=== PATIENT | female | born 1960 | race Hispanic/Latino ===

== ENCOUNTER 2017-09-19 03:23 | Inpatient (IN) | payer MEDICAID ==
[2017-09-19 04:27] LABS: ALB/GLOB RATIO 1.2 (1.1-1.8); ALBUMIN 3.9 g/dL (3.0-4.8)
[2017-09-19 04:53] LABS: URINE BILIRUBIN NEGATIVE (NEGATIVE); URINE BLOOD NEGATIVE (NEGATIVE); URINE GLUCOSE (UA) NEGATIVE (NEGATIVE); URINE LEUKOCYTE ESTERASE MODERATE Leu/uL (NEGATIVE); URINE NITRATE NEGATIVE (NEGATIVE); URINE PROTEIN NEGATIVE mg/dL (<30 mg/dL); URINE UROBILINOGEN 0.2 E.U./dL (<1 E.U./dL)
[2017-09-19 04:54] LABS: BASO # 0.04 K/mm3 (0.0-2.0); BASO % 0.6 % (0.0-3.0); EOS # 0.3 (0.0-0.7); EOS % 4.3 % (1.5-5.0); GRAN # 3.69 (1.4-6.5); GRAN % 54.3 % (50.0-68.0); HEMOGLOBIN 10.3 g/dL (12.0-16.0); LYMPH # 2.3 (1.2-3.4); LYMPH % 33.7 % (22.0-35.0); MEAN CELL VOLUME 84.6 fl (80.0-105.0); MEAN CORPUSCULAR HEMOGLOBIN 25.6 pg (25.0-35.0); MEAN CORPUSCULAR HGB CONC 30.3 g/dl (31.0-37.0); MEAN PLATELET VOLUME 11.9 fl (7.0-11.0); MONO # 0.5 (0.1-0.6); MONO % 7.1 % (1.0-6.0); RBC 4.02 10^6/uL (3.5-6.1); RED CELL DISTRIBUTION WIDTH 15.1 % (11.5-14.5); WHITE BLOOD COUNT 6.8 10^3/ul (4.5-11.0)
[2017-09-19 04:58] LABS: URINE APPEARANCE SL CLOUDY (CLEAR); URINE COLOR YELLOW (YELLOW)
[2017-09-19 05:09] LABS: URINE RBC 0 - 2 /hpf (0-2)
[2017-09-19 05:10] LABS: URINE BACTERIA RARE (NEG)
--- NOTE | 2017-09-19 05:32 | ED PDOC ---
Arrival/HPI - General Chief Complaint: Psychiatric Evaluation Time Seen by Provider: 09/19/17 03:33 Historian: Patient - History of Present Illness Narrative History of Present Illness (Text): 09/19/17 03:57 A 57 year old female, whose past medical history includes anxiety and depression , presents to the emergency department after being sent by Dr Joseph for evaluation. Patient reports experiencing anxiety and is unable to sleep. Patient denies any physical complaints, SI/HI, auditory/visual hallucinations, or any other complaints. No PMD Past Medical History - Provider Review Nursing Documentation Reviewed: Yes - Psychiatric Hx Substance Use: No Family/Social History - Physician Review Nursing Documentation Reviewed: Yes Family/Social History: No Known Family HX Smoking Status: n Hx Alcohol Use: No Hx Substance Use: No Allergies/Home Meds Allergies/Adverse Reactions: Allergies No Known Allergies Allergy (Verified 09/19/17 03:32) Home Medications: Home Meds Medication Instructions Recorded Confirmed Atorvastatin [Lipitor] 40 mg PO DAILY 09/19/17 09/19/17 Furosemide [Lasix] 40 mg PO DAILY 09/19/17 09/19/17 Magnesium Oxide [Magnesium] 400 mg PO DAILY 09/19/17 09/19/17 Melatonin [Melatin] 3 mg PO HS 09/19/17 09/19/17 Pantoprazole [Protonix] 40 mg PO DAILY 09/19/17 09/19/17 Potassium Chloride [K-Dur 20] 10 meq PO DAILY 09/19/17 09/19/17 Pregabalin [Lyrica] 50 mg PO TID 09/19/17 09/19/17 Riociguat [Adempas] 1.5 mg PO DAILY 09/19/17 09/19/17 Sennosides [Senna] 8.6 mg PO DAILY 09/19/17 09/19/17 Ziprasidone HCl [Geodon] 80 mg PO BID 09/19/17 09/19/17 clonazePAM [clonAZEPAM] 1 mg PO QID 09/19/17 09/19/17 metOLazone [Zaroxolyn] 2.5 mg PO DAILY 09/19/17 09/19/17 Review of Systems - Physician Review All systems were reviewed & negative as marked: Yes - Review of Systems Constitutional: Other (no physical complaints noted by patient). absent: Fevers Psychiatric: absent: Anxiety, Suicidal Ideation, Other (no HI, no auditory/ visual hallucinations) Physical Exam Vital Signs Reviewed: Yes Vital Signs Temp Pulse Resp BP Pulse Ox 09/19/17 04:19 97.6 F 61 17 141/68 95 Temperature: Afebrile Blood Pressure: Normal Pulse: Regular Respiratory Rate: Normal Appearance: Positive for: Well-Appearing Pain Distress: None Mental Status: Positive for: Alert and Oriented X 3 - Systems Exam Head: Present: Atraumatic, Normocephalic Pupils: Present: PERRL Extroacular Muscles: Present: EOMI Conjunctiva: Present: Normal Mouth: Present: Moist Mucous Membranes Neck: Present: Normal Range of Motion Respiratory/Chest: Present: Clear to Auscultation, Good Air Exchange. No: Respiratory Distress, Accessory Muscle Use Cardiovascular: Present: Regular Rate and Rhythm, Normal S1, S2. No: Murmurs Abdomen: Present: Normal Bowel Sounds. No: Tenderness, Distention, Peritoneal Signs Back: Present: Normal Inspection Upper Extremity: Present: Normal Inspection. No: Cyanosis, Edema Lower Extremity: Present: Normal Inspection. No: Edema Neurological: Present: GCS=15, CN II-XII Intact, Speech Normal Skin: Present: Warm, Dry, Normal Color. No: Rashes Psychiatric: Present: Alert, Oriented x 3, Normal Insight, Normal Concentration , Anxious. No: Suicidal Ideation, Homicidal Ideation, Hallucinations Medical Decision Making ED Course and Treatment: 09/19/17 04:00 Impression: 57 year old female with anxiety and insomnia. Physical exam is normal. Plan: -- EKG -- Chest X-ray -- Labs -- Urinalysis -- Reassess and disposition Progress Notes: EKG: Ordered, reviewed, and independently interpreted the EKG. Rate : 58 BPM Rhythm : Sinus rhythm Interpretation : Right axis deviation, incomplete Right Bundle Branch Block Comparison : No previous EKG for comparison. - Lab Interpretations Lab Results: 09/19/17 04:00 09/19/17 04:00 Lab Results 09/19/17 04:20: Urine Opiates Screen Negative, Urine Methadone Screen Negative, Ur Barbiturates Screen Negative, Ur Phencyclidine Scrn Negative, Ur Amphetamines Screen Negative, U Benzodiazepines Scrn Negative, U Oth Cocaine Metabols No result, U Cannabinoids Screen Negative 09/19/17 04:20: Urine Color Yellow, Urine Appearance Sl cloudy, Urine pH 6.0, Ur Specific [place] <= 1.005, Urine Protein Negative, Urine Glucose (UA) Negative, Urine Ketones Negative, Urine Blood Negative, Urine Nitrate Negative, Urine Bilirubin Negative, Urine Urobilinogen 0.2, Ur Leukocyte Esterase Moderate H, Urine RBC 0 - 2, Urine WBC 5 - 10, Ur Epithelial Cells 1 - 3, Urine Bacteria Rare 09/19/17 04:00: Alcohol, Quantitative < 10 09/19/17 04:00: Salicylates < 1 L, Acetaminophen < 10.0 L 09/19/17 04:00: Sodium 140, Potassium 4.4, Chloride 102, Carbon Dioxide 28, Anion Gap 14, BUN 40 H, Creatinine 1.5 H, Est GFR ( Amer) 44, Est GFR ( Non-Af Amer) 36, Random Glucose 139 H, Calcium 11.0 H, Total Bilirubin 0.7, AST 23, ALT 32, Alkaline Phosphatase 68, Total Protein 7.1, Albumin 3.9, Globulin 3.2, Albumin/Globulin Ratio 1.2 09/19/17 04:00: WBC 6.8, RBC 4.02, Hgb 10.3 L, Hct 34.0 L, MCV 84.6, MCH 25.6, MCHC 30.3 L, RDW 15.1 H, Plt Count 156, MPV 11.9 H, Gran % 54.3, Lymph % (Auto) 33.7, [place] % (Auto) 7.1 H, Eos % (Auto) 4.3, Baso % (Auto) 0.6, Gran # 3.69, Lymph # 2.3, [place] # 0.5, Eos # 0.3, Baso # 0.04 I have reviewed the lab results: Yes - RAD Interpretation Radiology Orders: 09/19/17 03:33 CHEST ONE VIEW [RAD] Stat - Transfer of Care Patient signed out to Dr:: Ry - Stephibjatin Statement The provider has reviewed the documentation as recorded by the Leslie Delaney Provider Scribe Attestation: All medical record entries made by the Stephibjatin were at my direction and personally dictated by me. I have reviewed the chart and agree that the record accurately reflects my personal performance of the history, physical exam, medical decision making, and the department course for this patient. I have also personally directed, reviewed, and agree with the discharge instructions and disposition. Disposition/Present on Arrival - Present on Arrival Any Indicators Present on Arrival: No History of DVT/PE: No History of Uncontrolled Diabetes: No Urinary Catheter: No History of Decub. Ulcer: No History Surgical Site Infection Following: None - Disposition Have Diagnosis and Disposition been Completed?: Yes Diagnosis: MDD (major depressive disorder) Disposition Time: 07:00 Condition: UNKNOWN Forms: [employer] (Egyptian)
[2017-09-19 05:50] LABS: BARBITURATES, UR NEGATIVE (NEGATIVE); BENZODIAZEPINES, UR NEGATIVE (NEGATIVE); OPIATES, UR NEGATIVE (NEGATIVE); PHENCYCLIDINE, UR NEGATIVE (NEGATIVE)
--- NOTE | 2017-09-19 07:21 | ED PDOC ---
Physical Exam Vital Signs Reviewed: Yes Vital Signs Temp Pulse Resp BP Pulse Ox 09/19/17 07:53 98.1 F 83 16 116/59 L 94 L 09/19/17 04:19 97.6 F 61 17 141/68 95 Temperature: Afebrile Blood Pressure: Normal Pulse: Regular Respiratory Rate: Normal Appearance: Positive for: Well-Appearing, Non-Toxic, Comfortable Pain Distress: None Mental Status: Positive for: Alert and Oriented X 3 Medical Decision Making ED Course and Treatment: 09/19/17 07:20: Patient endorsed to me by Dr. Flores. Sent in by Dr. Joseph for evaluation of anxiety and insomnia. Pending admission. PROCEDURE: CHEST RADIOGRAPH, 1 VIEW Dictator : Eugene Aguayo MD Report Date : 09/19/2017 08:18:26 IMPRESSION: No active disease. 09/19/17 10:14 psychiatric consultation appreciated. Pt is medically cleared for psychiattric evaluation and as per debra Cheng pt is to be admitte for stabilization of depressive disorder and overwhleming anxiety stabilization. . - Lab Interpretations Lab Results: 09/19/17 04:00 09/19/17 04:00 Lab Results 09/19/17 09:59: POC Glucose (mg/dL) 181 H 09/19/17 04:20: Urine Opiates Screen Negative, Urine Methadone Screen Negative, Ur Barbiturates Screen Negative, Ur Phencyclidine Scrn Negative, Ur Amphetamines Screen Negative, U Benzodiazepines Scrn Negative, U Oth Cocaine Metabols No result, U Cannabinoids Screen Negative 09/19/17 04:20: Urine Color Yellow, Urine Appearance Sl cloudy, Urine pH 6.0, Ur Specific [place] <= 1.005, Urine Protein Negative, Urine Glucose (UA) Negative, Urine Ketones Negative, Urine Blood Negative, Urine Nitrate Negative, Urine Bilirubin Negative, Urine Urobilinogen 0.2, Ur Leukocyte Esterase Moderate H, Urine RBC 0 - 2, Urine WBC 5 - 10, Ur Epithelial Cells 1 - 3, Urine Bacteria Rare 09/19/17 04:00: Alcohol, Quantitative < 10 09/19/17 04:00: Salicylates < 1 L, Acetaminophen < 10.0 L 09/19/17 04:00: Sodium 140, Potassium 4.4, Chloride 102, Carbon Dioxide 28, Anion Gap 14, BUN 40 H, Creatinine 1.5 H, Est GFR ( Amer) 44, Est GFR ( Non-Af Amer) 36, Random Glucose 139 H, Calcium 11.0 H, Total Bilirubin 0.7, AST 23, ALT 32, Alkaline Phosphatase 68, Total Protein 7.1, Albumin 3.9, Globulin 3.2, Albumin/Globulin Ratio 1.2 09/19/17 04:00: WBC 6.8, RBC 4.02, Hgb 10.3 L, Hct 34.0 L, MCV 84.6, MCH 25.6, MCHC 30.3 L, RDW 15.1 H, Plt Count 156, MPV 11.9 H, Gran % 54.3, Lymph % (Auto) 33.7, [place] % (Auto) 7.1 H, Eos % (Auto) 4.3, Baso % (Auto) 0.6, Gran # 3.69, Lymph # 2.3, [place] # 0.5, Eos # 0.3, Baso # 0.04 - RAD Interpretation Radiology Orders: 09/19/17 03:33 CHEST ONE VIEW [RAD] Stat - Scribe Statement The provider has reviewed the documentation as recorded by the Scribe Janet Stone Provider Scribe Attestation: All medical record entries made by the Scribe were at my direction and personally dictated by me. I have reviewed the chart and agree that the record accurately reflects my personal performance of the history, physical exam, medical decision making, and the department course for this patient. I have also personally directed, reviewed, and agree with the discharge instructions and disposition. Disposition/Present on Arrival - Present on Arrival Any Indicators Present on Arrival: No History of DVT/PE: No History of Uncontrolled Diabetes: No Urinary Catheter: No History of Decub. Ulcer: No History Surgical Site Infection Following: None - Disposition Have Diagnosis and Disposition been Completed?: Yes Diagnosis: MDD (major depressive disorder), Anxiety disorder Disposition: HOSPITALIZED Disposition Time: 10:16 Patient Plan: Admission Patient Problems: Current Active Problems Problem Status Onset MDD (major depressive disorder) Acute Condition: UNKNOWN Forms: [employer] (Uzbek)
--- NOTE | 2017-09-19 08:20 | RAD ---
PROCEDURE: CHEST RADIOGRAPH, 1 VIEW HISTORY: psych eval COMPARISON: None available. FINDINGS: LUNGS: Clear. PLEURA: No pneumothorax or pleural fluid seen. CARDIOVASCULAR: Normal. OSSEOUS STRUCTURES: No significant abnormalities. VISUALIZED UPPER ABDOMEN: Normal. OTHER FINDINGS: None. IMPRESSION: No active disease.
--- NOTE | 2017-09-19 10:46 | CARD ---
APPROVED REPORT EKG Measurement Heart [id number] <Conclusion> Sinus bradycardia Right axis deviation Incomplete right bundle branch block Possible Right ventricular hypertrophy Abnormal QRS-T angle, consider primary T wave abnormality Abnormal ECG
[2017-09-19 10:51] LABS: SALICYLATE < 1 mg/dL (2.0-20.0)
[2017-09-19] MEDS ORDERED: Insulin Regular 1 UNITS/0.01 ML ML ONE (13:14)
[2017-09-19] MEDS ORDERED: Home Med 1 UNIT PO SCH ×2 (16:30→16:41)
[2017-09-19] MEDS ORDERED: Non Formulary Medication (Insulin Aspart/Insulin Aspar [Novolog Mix 70/30 (70/30 Units/Ml) SC SCH (16:30)
[2017-09-19] MEDS: metOLazone 2.5 MG TAB PO SCH (16:58)
[2017-09-19] MEDS: Pantoprazole 40 mg EC Tab PO SCH (16:59)
[2017-09-19] MEDS: Insulin Lispro (humaLOG) LOW Coverage SC SCH ×2 (17:01→22:45)
[2017-09-19] MEDS ORDERED: DiphenhydrAMINE 50 mg/ml Inj IM STA (17:13)
--- NOTE | 2017-09-19 17:16 | CP.PCM.PCO ---
Addendum Addendum: 09/19/17 17:14 pt is screaming, yelling, not able to calm down, argumentative about her meds pt got PO meds, but was not able to calm down, interrupting unit milieu this fiction and nonfiction writer prose called , discussed the plan to give Haldol 2mg and benadryl 25mg IM stat, agreed staff was advised to let pt stay in quiet room for 30min until meds will start working discussed with RN/staff and attending will monitor closely
[2017-09-19] MEDS: ADEMPAS 1.5 MG PO SCH (17:45)
--- NOTE | 2017-09-19 19:55 | PCM.BM ---
<Rima Cotton - Last Filed: 09/19/17 19:52> Treatment Plan Problems - Problems identified on initial assessmt ALTERED SLEEP PATTERN Date Initiated: 09/19/17 Time Initiated: 20:00 Assessment reference: NA Status: Active Priority: 1 AGITATED BEHAVIOR Date Initiated: 09/19/17 Time Initiated: 20:00 Assessment reference: NA Status: Active Priority: 2 INEFFECTIVE IMPULSE CONTROL Date Initiated: 09/19/17 Time Initiated: 20:00 Assessment reference: NA Status: Active Priority: 3 Treatment assets and liabiliti Patient Assests: cooperative, ADL independent, good support system, cognitively intact Patient Liabilities: relationship conflicts, dietary restrictions, medical problems - Milieu Protocol Maintain good personal hygiene: daily Encourage regular showers, daily Remind patient to perform daily oral care, daily Assist patient to perform ADL's Maintain personal safety: every shift Educate patient to report safety concerns to staff, every shift Monitor environment for contraband/sharps Medication safety: Monitor for expected outcome, potential side effects: every shift, Assess barriers to learning: every shift, Assess readiness for medication education: every shift Discharge/Continuing Care - Education Needs Education Needs: Patient Medication, Patient Diagnosis/Disease Process, Patient Coping Skills, Patient Community resources, Patient Activities of Daily Living, Patient Nutrition, Patient Uses of Medical Equipment, Patient Health Practices/ Safety, Patient Personal Hygiene/Grooming, Patient Aftercare Safety Plan - Discharge Discharge Criteria: Tolerates medication w/o severe side effects, Free of paranoid thoughts, Free of agitation, Normal sleep pattern, Ability to care for self, Reduction of target symptoms Discharge to:: Home <Rajni Martinez - Last Filed: 09/22/17 16:14> Family Contact Family involvement: Family/SO is involved Family contact name: Nohemi(sister) Family contacted how many times per week?: 2
[2017-09-19] MEDS: MELATONIN 3 MG PO SCH (22:33)
[2017-09-20 08:29] LABS: ALB/GLOB RATIO 1.3 (1.1-1.8); ALBUMIN 4.1 g/dL (3.0-4.8); CALCIUM 10.9 mg/dL (8.4-10.5)
[2017-09-20] MEDS: Pantoprazole 40 mg EC Tab PO SCH (08:30)
[2017-09-20] MEDS: Magnesium Oxide 400 mg Tab UD PO SCH (08:31)
[2017-09-20] MEDS: metOLazone 2.5 MG TAB PO SCH (08:31)
[2017-09-20] MEDS: Potassium Chloride 10 mEq ER Tab PO SCH (08:31)
[2017-09-20] MEDS: Insulin Lispro (humaLOG) LOW Coverage SC SCH ×4 (08:35→21:46)
[2017-09-20] MEDS: ADEMPAS 1.5 MG PO SCH ×3 (08:35→17:56)
[2017-09-20 08:42] LABS: FREE T4 1.24 ng/dL (0.78-2.19)
--- NOTE | 2017-09-20 09:36 | HP ---
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 She resides with her who she is in conflict with, complaining he does not pay enough attention to her, was not supportive of her, threats to put her in a half-way, etc. and her 12-year-old son who is according to the patient undisciplined, engages in bizarre behaviors like hitting the wall, threatening at times (but who appears to be a paradigm of a good student at school such that his teachers do not observe the problematic domestic behavior described). The patient has an older daughter who had a baby recently. The patient had been stressed out over having to prepare dinners for the daughter and her new during week days (apparently it is the norm in the [facility] community that the patient is a part of to offer such assistance to the newly wed couple for the first year of their marriage). The patient has for many years been unable to have children, but as noted has two children, having undergone much gynecologic/fertility treatment. She has also had to deal with a number of medical issues including diabetes, pulmonary hypertension. The patient has had several hospitalizations in the [place] area over the past year because of her fragile medical state, which includes also some cardiac irregularity. These hospitals have included [facility] and [facility]; both in [place]. 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 Over the years, attempts have been made to get the patient involved in ongoing psychotherapy; with the patient having made a number of changes in the therapist that she had been seeing; oftentimes, these are somewhat knowledgeable, supportive, identified individuals or friends. The patient has several nieces, the offspring of her siblings who have also been helpful to the patient. These appear also to be the major extent of her social milieu. The patient prior to coming under my care had been diagnosed by another psychiatrist in [place] as bipolar and had been on lithium, but this apparently led to adverse renal and cardiac problems. The patient is considered to have an impaired intelligence, but her siblings rejected this notion when I have brought up this possibility. As far as I can determine, the patient has never undergone a full neuropsychological battery of testing. The patient's also appears to be somewhat avoidant of interacting with mental health workers, including me, making only rare appearances in my office (oftentimes driving his to our appointments, but going shopping and refusing to come upstairs to be spoken to in my office). He has worked primarily as a school crossing guard. The patient presently appears to be alert, but agitated, with pressured speech, sometimes tangentiality and anger. She does not appear to be psychotic. The patient is presently being maintained on Lasix 40 mg daily, Lyrica 50 mg t.i.d., magnesium oxide 400 mg daily, Protonix 40 mg daily, Senokot 8.6 mg daily, Zaroxolyn 2.5 mg daily. The patient has been started on Tegretol 200 mg b.i.d. in an attempt to control her agitated state; with the possibility that she in fact does have atypical bipolar disorder. The patient in the past has been maintained on Mellaril and Ativan for a number of years and did well on this. When feeling better, she is more focused, calm, interactive, but whose insight and judgment are considered to be challenged. 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 PLAN: The patient will be monitored and an attempt will be made to stabilize her both psychiatrically and metabolically. Toni Joseph MD/ PhD
[2017-09-20] MEDS: carBAMazepine Chew Tab 100 MG Chew Tab PO SCH (17:55)
[2017-09-20] MEDS: MELATONIN 3 MG PO SCH (21:41)
--- NOTE | 2017-09-21 02:35 | PN ---
DATE: SUBJECTIVE: The patient was interviewed in the presence of her sister, Romie. The patient remains with pressured speech, some agitation, some difficulty in listening in the course of conversation, and at times appears unable to adapt to some of the realities of her life. I have suggested that the patient's family engage in family therapy upon her discharge, but the patient feels that her will not go for such treatment and is avoiding to generally of seeing mental health workers. The patient also might have reported aberrant behavior of her 12-year-old son. Nursing feels that while her speech is pressured and loud that she is calming down. She had been started on Tegretol earlier, but became very sedated. She is now being given a lower dose while being maintained on Geodon 80 mg b.i.d., Klonopin 1 mg four times a day, pregabalin 50 mg t.i.d., and with a dose of Tegretol now cut to half to 100 mg b.i.d. Toni Joseph MD/ PhD
--- NOTE | 2017-09-21 03:32 | CON ---
MEDICAL CONSULT HISTORY OF PRESENT ILLNESS: I have been asked to see this 57-year-old female, who presents to [facility] as a patient of Dr. Joseph, her psychiatrist. She lives in [place]. She is an Presybeterian/Hasidic Denominational woman with multiple medical problems. History is taken from the patient primarily. She states that she has a history of diabetes, pulmonary hypertension, depression. ALLERGIES: SHE DENIES ANY ALLERGY HISTORY. SOCIAL HISTORY: She denies any use of alcohol, drugs or smoking. She is . She has 2 children. She expresses the fact that there is tended to be some conflict between her and her . The son does express some disruptive behavior in the home, although reportedly in school he is a good student. She had a daughter who , she has been involved with helping to care for the and her new . She does get some assistance from family members. There is a history based upon Dr. Joseph of a possible bipolar disorder. There is a history of anoxic event causing some possible neurologic and ophthalmological problems. MEDICATIONS: Her medications are reportedly Geodon 80 mg b.i.d., Zaroxolyn 2.5 mg daily, clonazepam 1 mg four times a day, senna 8.6 mg daily, Adempas 1.5 mg daily, Lyrica 50 mg t.i.d, K-Dur 10 mEq daily, Protonix 40 mg daily, melatonin 3 mg at bedtime, magnesium oxide 400 mg daily. She states that she is on insulin, NovoLog 70/30, 18 units b.i.d., Lasix 40 mg daily, and Lipitor 40 mg daily. PHYSICAL EXAMINATION GENERAL: She is alert and oriented x3. VITAL SIGNS: Her temperature 97.8, her pulse is 52, her blood pressure is 104/44, and respiratory rate is 20. NECK: Supple. LUNGS: Clear. HEART: S1 and S2 rhythm. ABDOMEN: Obese, soft. Positive bowel sounds. EXTREMITIES: Show no evidence of edema. Her EKG shows sinus bradycardia, right axis deviation, incomplete right bundle branch block, possible right ventricular hypertrophy with abnormal QRS-T angle, consider primary T-wave abnormality. She had a chest x-ray which lungs reported as clear, no active disease. LABORATORY DATA: Shows WBC of 6.8, RBC 4.02, hemoglobin 10.3, hematocrit 34, platelet count 136. Chemistries show normal electrolytes, the BUN is 40, the creatinine is 1.2, random blood sugar is 147, calcium is 10.9. LFTs are normal. Her cholesterol is 122, her triglycerides are 90, her TSH is 0.61. Urinalysis showed moderate leukocyte esterase. Toxicology screen was negative. IMPRESSION: A 57-year-old female with history of pulmonary hypertension, insulin-dependent diabetes mellitus, possible anoxic episode during infancy or at , organic personality disorder, one must rule out bipolar disorder. PLAN: We will check the patient's hemoglobin A1C. Request an Endocrine consult given the fact that the patient states if she sometimes adjust her insulin according to its level, it is not clear as to how or how much. Resume her medications as she has prescribed, and we will follow the patient medically with Dr. Joseph. Suyapa Benjamin MD
[2017-09-21] MEDS ORDERED: Insulin Human NPH/Reg 70/30 Vial(3 ml) SC SCH ×3 (07:30→16:42)
[2017-09-21] MEDS ORDERED: Home Med 1 UNIT PO SCH (08:00)
[2017-09-21] MEDS: Insulin Lispro (humaLOG) LOW Coverage SC SCH ×4 (08:35→21:29)
[2017-09-21] MEDS: ADEMPAS 1.5 MG PO SCH ×3 (09:12→18:09)
[2017-09-21] MEDS: Potassium Chloride 10 mEq ER Tab PO SCH (09:13)
[2017-09-21] MEDS: Pantoprazole 40 mg EC Tab PO SCH (09:15)
[2017-09-21] MEDS: Magnesium Oxide 400 mg Tab UD PO SCH (09:15)
[2017-09-21] MEDS: metOLazone 2.5 MG TAB PO SCH (09:15)
[2017-09-21] MEDS: carBAMazepine Chew Tab 100 MG Chew Tab PO SCH ×2 (09:16→18:22)
--- NOTE | 2017-09-21 11:03 | CON ---
DATE: ENDOCRINOLOGY CONSULT LOCATION: Room 513. HISTORY OF PRESENT ILLNESS: This is a 57-year-old female with known history of type 2 insulin-requiring diabetes, presenting here with behavioral disturbances and has been admitted to the Psychiatric Unit and is now being referred for diabetic evaluation and management. PAST MEDICAL HISTORY: History of type 2 insulin-requiring diabetes, currently on a premixed insulin regimen using NovoLog 70/30, given as 18 units subcu b.i.d. before meals as ordered; history of hypertension and dyslipidemia; history of generalized anxiety and depression with underlying chronic schizoaffective disorder. FAMILY HISTORY: Positive for diabetes and hypertension. SOCIAL HISTORY: The patient has supportive family. No known substance use. REVIEW OF SYSTEMS: As mentioned above. Admits to generalized body weakness with episodic bouts of dizziness and lightheadedness and suboptimal energy level. No chest pains or palpitations or PND. Her oral intake has been variable with nausea, dyspepsia, and habitual constipation. PHYSICAL EXAMINATION: GENERAL: This is an obese female, in no apparent distress. VITAL SIGNS: Blood pressure of 140/80, pulse of 90 beats per minute and regular, temperature 98, respirations 20, height 5 feet, and weight of 214 pounds. HEENT: Head is normocephalic. Eyes are anicteric with pink conjunctivae. Funduscopy not possible at this time. Ears, nose and throat, otherwise normal. NECK: Supple. Thyroid gland is of normal size. No carotid bruits or any cervical adenopathy. CARDIOPULMONARY: Some adynamic precordium. S1 and S2, rapid and regular. LUNGS: Clear to auscultation. ABDOMEN: Obese and soft with positive bowel sounds. EXTREMITIES: No peripheral edema. Pulses are +2 bilaterally. LABORATORIES: Her chemistries showed a BUN of 40. Sodium 139, potassium 4.1, chloride 102, CO2 27, glucose 182, and creatinine 1.2. Her calcium level has ranged from 10.9 to 11.0 mg/dL. Her glucose levels have ranged from 157 to 177 mg/dL. Her A1c is 6.5%. Her thyroid level showed a TSH of 0.61 with a free T4 of 1.24. ASSESSMENT: This is a 57-year-old female with uncontrolled and decompensated type 2 insulin-requiring diabetes, also admitted here to the Psychiatric Unit for major depression and psychotic breakthrough with behavioral disturbances, and is now being referred for diabetic evaluation and management. PLAN OF MANAGEMENT: As discussed with the staff, we will continue the low-dose correction scale using Humalog insulin as ordered and if her oral intake improves, then we will start her on a basal and bolus insulin regimen as indicated and/or a premixed insulin regimen as indicated. Because of her emotional lability, it would be better to simplify the insulin regimen and we will restart her by tomorrow on the premixed insulin regimen to optimize metabolic control. We will obtain serial chemistries and supplement accordingly as needed. We will follow. Swetha Lowe MD
--- NOTE | 2017-09-21 20:27 | PN ---
DATE: ENDO FOLLOWUP NOTE LOCATION: In room 512 psychiatry. SUBJECTIVE: This is a 57-year-old female with recent generalized anxiety and major depression and is now being followed closely by the Psychiatric unit and is also being followed for metabolic management. Her glycemic levels are fluctuating but much improved at this time and the latest glucose levels have ranged from 211-228 and 253 mg/dL. Her latest chemistries showed a BUN of 40, sodium 139, potassium 4.1, chloride 102, CO2 of 27, glucose 182 and creatinine 1.2. Her calcium level is 10.9, A1c is 6.5%. So at this time, we will modify her basal and bolus insulin regimen and increase the Humulin 70/30 to 16 units subcu a.c. breakfast daily and also increase the dinner time dosing with Humulin 70/30 given as 12 units a.c. dinner to start today as ordered. We will titrate incrementally as indicated to optimize metabolic control. We will obtain serial chemistries and supplement accordingly as needed. We will also continue the low-dose correction scale using Humalog insulin as ordered. We will follow and advise accordingly. Swetha Lowe MD
[2017-09-21] MEDS: MELATONIN 3 MG PO SCH (21:27)
--- NOTE | 2017-09-21 23:31 | PN ---
DATE: SUBJECTIVE: This is a 57-year-old female on the Psychiatry Unit under Dr. Toni Joseph service. PHYSICAL EXAMINATION: VITAL SIGNS: She has a temperature of 98, pulse is 56, blood pressure is 107/52. GENERAL: She is alert and oriented x3. NECK: Supple. LUNGS: Clear. HEART: S1 and S2 rhythm. ABDOMEN: Soft, scaphoid, with positive bowel sounds. LABORATORY DATA: Random blood sugar is 157. Her hemoglobin A1c is 6.5. MEDICATIONS: She is currently on Geodon 80 mg b.i.d., Humalog sliding scale, Klonopin 1 mg p.o. q.i.d., potassium chloride 10 mEq daily, Lasix 40 mg daily, Lyrica 50 mg t.i.d., magnesium oxide 400 mg daily, Protonix 40 mg daily, Senokot 8.6 mg daily, Tegretol 100 mg p.o. b.i.d., Thorazine 25 mg p.o. a.m. and at bedtime, and Zaroxolyn 2.5 mg daily. ASSESSMENT AND PLAN: She currently is being followed by Psychiatry for depression history and agitation. She has been followed by Endocrinology for type 2 insulin requiring diabetes. She has a past medical history of pulmonary hypertension, atherosclerotic heart disease. We will continue to monitor the patient medically along with Psychiatry, Dr. Joseph and Endocrinology, Dr. Guerrero. She is taking her home medication for pulmonary hypertension Adempas 1.5 mg daily. Suyapa Benjamin MD
--- NOTE | 2017-09-21 23:41 | PCM.PYCHPN ---
Psychiatric Progress Note - Psychiatric Progress Note Patient seen today, length of contact: 25 Patient Chief Complaint: depression Medication Change: No Medical Record Reviewed: Yes Mental Status Examination - Cognitive Function Orientation: Person, Place, Situation, Time Memory: Intact Attention: WNL Concentration: WNL Association: WNL Fund of Knowledge: WNL - Mood Mood: Depressed, Anxious - Affect Affect: Blunted - Speech Speech: Loud, Pressured - Formal Thought Process Formal Thought Process: Other - Suicidal Ideation Suicidal Ideation: No - Homicidal Ideation Homicidal Ideation: No Goal/Treatment Plan - Goal/Treatment Plan Need for Continued Stay: Remain at risks for inpatient hospitalization, Discharge may exacerbated symptoms
[2017-09-22] MEDS ORDERED: Alum-Mag Hydrox-Simethicone Susp (30 mL) PO PRN (05:34)
[2017-09-22] MEDS ORDERED: Insulin Human NPH/Reg 70/30 Vial(3 ml) SC SCH (07:30)
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
[2017-09-22] MEDS: ADEMPAS 1.5 MG PO SCH ×3 (09:02→18:58)
[2017-09-22] MEDS: Insulin Lispro (humaLOG) LOW Coverage SC SCH ×4 (09:03→22:16)
[2017-09-22] MEDS: carBAMazepine Chew Tab 100 MG Chew Tab PO SCH ×2 (09:03→19:00)
[2017-09-22] MEDS: Pantoprazole 40 mg EC Tab PO SCH (09:04)
[2017-09-22] MEDS: Magnesium Oxide 400 mg Tab UD PO SCH (09:04)
[2017-09-22] MEDS: metOLazone 2.5 MG TAB PO SCH (09:04)
[2017-09-22] MEDS: Potassium Chloride 10 mEq ER Tab PO SCH (09:05)
--- NOTE | 2017-09-22 16:24 | PN ---
DATE: SUBJECTIVE: This is a 57-year-old female on the Psychiatric Unit under Dr. Toni Joseph's service sitting in the chair, somewhat little bit sleepy. PHYSICAL EXAMINATION: GENERAL: She is alert and oriented x3. VITAL SIGNS: Her temperature is 98, her pulse is 56, her blood pressure is 124/55, and respiratory rate is 20. LUNGS: Clear. HEART: S1 and S2 rhythm. ABDOMEN: Soft, scaphoid, positive bowel sounds. EXTREMITIES: No evidence of edema. LABORATORY DATA: Her RPR is negative. Her blood sugar this morning was 216. ASSESSMENT AND PLAN: The patient was reported by the staff as requiring oxygen the night before, where they reported that her pulse oximetry was 88%. After the discussion with the patient's she now makes us aware of the fact that she has a history of sleep apnea, uses equipment at home at night, also uses oxygen at night. My consult has been requested with Pulmonary. We will place the patient on oxygen. Request the patient's family bring in her equipment from home. In the interim, she continues on her psychiatric medication for depression, pulmonary hypertension, medication from home. We will follow up the patient's labs. The staff has been instructed as to what the plan care is at this time. Suyapa Benjamin MD
--- NOTE | 2017-09-22 20:08 | CON ---
DATE: 09/22/2017 PULMONARY CONSULTATION REASON FOR CONSULTATION: Pulmonary hypertension. REFERRING PHYSICIAN: Suyapa Benjamin MD History is obtained via extensive discussion with Dr. Benjamin. I have also reviewed the chart at length. The patient is not an adequate historian at this point in time. The patient is a 57-year-old female, who appears much older than her stated age, with past medical history significant for obstructive sleep apnea, pulmonary hypertension, diabetes mellitus, organic personality disorder, who presented to the [facility] - originally on 09/19/2017 - with increasing anxiety and inability to sleep. The patient was then seen by Dr. Joseph and admitted for additional evaluation. The patient is not short of breath at rest. She does state to occasional shortness of breath with exertion. There is no history of cough or sputum production. There is no history of chest pain, coughing up of blood, or chest pain - made worse with deep respirations. There is no history of temperatures, chills or infectious exposure. There is no history of night sweats, weight loss or appetite change prior to the above events. No history of leg or calf pains. No history of syncope or diaphoresis. No history of recent travel or trauma. REVIEW OF SYSTEMS: No history of nausea, vomiting or diarrhea. No acute urinary symptoms. No new musculoskeletal complaints. Rest of the review of systems is negative. ALLERGIES: NO KNOWN ALLERGIES. SOCIAL HISTORY: Negative for tobacco. Negative for alcohol. FAMILY HISTORY: No inheritable diseases. HOME MEDICATIONS: Include Zaroxolyn, clonazepam, Geodon, Adempas, Lyrica, Protonix, magnesium, NovoLog, Lasix, Lipitor. PHYSICAL EXAMINATION: GENERAL: The patient appears comfortable this morning. She is not short of breath at rest. VITAL SIGNS: Last temperature recorded is 98.0, pulse is 80, respirations 18, and blood pressure 124/55. Oxygen saturation measured on room air - 09/19/2017 - 99%. HEENT: Normocephalic, atraumatic. No JVD. CARDIOVASCULAR: Positive S1, S2. No S3 gallop. LUNGS: Clear bilaterally. EXTREMITIES: No clubbing, cyanosis or edema. Calves are nontender to palpation. GI: Abdomen is soft, nontender and nondistended. Bowel sounds are positive. SKIN: No acute rash. NEUROLOGIC: Exam limited at the present time. PERTINENT LABORATORY DATA: Chest x-ray was done on 09/19/2017 and reviewed. There is no active disease present. CBC: White count 6.8, hemoglobin 10.3, hematocrit 34.0, platelets of 156,000. Complete metabolic profile: BUN 40, glucose 182, calcium 10.9. Rest of the metabolic profiles within normal limits. IMPRESSION: 1. Obstructive sleep apnea. 2. Pulmonary hypertension. 3. Oxygen desaturation at night. 4. Diabetes mellitus. 5. Organic personality disorder. PLAN: Again, I did discuss the case with Dr. Benjamin at length. I have also reviewed the chart at length. The patient was admitted to [facility] - on 09/19/2017 - with worsening anxiety and inability to sleep. I did question the patient in reference to her diagnosis of pulmonary hypertension. Apparently, she was diagnosed over a year ago at [facility]. We will try to get those records if possible. The patient also has a history of obstructive sleep apnea and is reportedly compliant with her CPAP mask. I did discuss the case with the nursing staff as well. Apparently, two nights ago, the patient had an oxygen saturation of 89% when sleeping. We will continue the patient on nasal cannula oxygen - especially when sleeping. I have also discussed the case with the respiratory therapist. The respiratory therapist will obtain a room air oxygen saturation today while awake. Lastly, we will continue with her Adempas - for her pulmonary hypertension. I did review the chest x-ray as above. The chest x-ray shows no active disease. In addition, the lungs are clear on physical exam. Again, I have discussed the case with the nursing staff, as well as the respiratory therapist at length. The family will be called, and hopefully will bring the patient's CPAP mask in with them. Additional pulmonary intervention will be based on the clinical status of the patient. Again, I did discuss the case with Dr. Benjamin at length. Thank you very much for this pulmonary consultation. Sahil Henry MD [facility]
[2017-09-22] MEDS: MELATONIN 3 MG PO SCH (21:58)
--- NOTE | 2017-09-23 00:09 | PN ---
DATE: 09/22/2017 ENDOCRINOLOGY FOLLOWUP NOTE LOCATION: Room 513, psychiatry. SUBJECTIVE: This is a 57-year-old female with recent uncontrolled type 2 insulin-requiring diabetes presenting here with generalized anxiety and major depression and currently followed closely at the psychiatric unit and is also being followed closely for metabolic management. Her glycemic levels are fluctuating as noted and today's glucose levels have ranged from 249 to 312 and 315 mg/dL. LABORATORY DATA: Her latest chemistry showed a BUN of 40, sodium 139, potassium 4.1, chloride 102, CO2 27, glucose 182 and creatinine 1.2. PLAN: So at this time, we will continue the low-dose correction scale using Humalog insulin as given. We will also increase her premixed insulin regimen to optimize metabolic control with a higher dose of Humulin 70/30 given as 24 units a.c. breakfast and 18 units a.c. dinner to start tomorrow morning as ordered. We will obtain serial chemistries and supplement accordingly needed. We will follow. Swetha Lowe MD
[2017-09-23] MEDS: Insulin Lispro (humaLOG) LOW Coverage SC SCH ×5 (07:30→22:12)
[2017-09-23] MEDS: Insulin Human NPH/Reg 70/30 Vial(3 ml) SC SCH ×3 (07:55→16:28)
[2017-09-23 08:07] LABS: ALB/GLOB RATIO 1.2 (1.1-1.8); ALBUMIN 4.5 g/dL (3.0-4.8); CALCIUM 11.2 mg/dL (8.4-10.5)
[2017-09-23] MEDS: metOLazone 2.5 MG TAB PO SCH (08:50)
[2017-09-23] MEDS: Pantoprazole 40 mg EC Tab PO SCH (08:50)
--- NOTE | 2017-09-23 08:54 | PCM.PYCHPN ---
Psychiatric Progress Note - Psychiatric Progress Note Patient seen today, length of contact: 25 MIN Patient Chief Complaint: "better" Problems Identified/Issues Discussed: I reviewed assessment and recent notes. Patient appears fairly cooperative with questioning but notably disorganized, overinclusive and scattered with her responses. Has a tendency to ramble. Oriented to year and location but not to month. She denies depression or hallucinations. Feeling more alert since her medications were adjusted by Dr. Joseph yesterday. Denies any pain or discomfort. Staff notes indicate that she has been visible, loud and talkative on the unit. Still disorganized and elevated. She remains unpredictable. Diagnostic Results: Bipolar Disorder NOS Anxiety Disorder Medication Change: No Medical Record Reviewed: Yes Mental Status Examination - Cognitive Function Orientation: Person, Place, Situation, Time Memory: Intact Attention: WNL Concentration: WNL Association: WNL Fund of Knowledge: WNL - Mood Mood: Depressed, Anxious - Affect Affect: Blunted - Speech Speech: Loud, Pressured - Formal Thought Process Formal Thought Process: Other - Suicidal Ideation Suicidal Ideation: No - Homicidal Ideation Homicidal Ideation: No Goal/Treatment Plan - Goal/Treatment Plan Need for Continued Stay: Remain at risks for inpatient hospitalization, Discharge may exacerbated symptoms Progress Toward Problem(s) and Goals/Treatment Plan: * c/w current tx and plan * Vitals reviewed and noted below: Selected Entries 09/21/17 09/21/17 09/21/17 07:34 09:14 16:30 Temperature 98.0 F Pulse Rate 56 L 56 L Respiratory 20 Rate Blood Pressure 118/72 118/72 107/52 L 09/22/17 09:05 Temperature Pulse Rate Respiratory Rate Blood Pressure 124/55 L * Awaiting 09/23/17 lab results
[2017-09-23] MEDS: ADEMPAS 1.5 MG PO SCH ×3 (08:55→17:11)
[2017-09-23 08:56] LABS: BASO # 0.05 K/mm3 (0.0-2.0); BASO % 0.7 % (0.0-3.0); EOS # 0.3 (0.0-0.7); EOS % 4.4 % (1.5-5.0); GRAN # 3.65 (1.4-6.5); GRAN % 50.6 % (50.0-68.0); HEMOGLOBIN 12.7 g/dL (12.0-16.0); LYMPH # 2.7 (1.2-3.4); LYMPH % 36.8 % (22.0-35.0); MEAN CELL VOLUME 83.4 fl (80.0-105.0); MEAN CORPUSCULAR HEMOGLOBIN 26.1 pg (25.0-35.0); MEAN CORPUSCULAR HGB CONC 31.3 g/dl (31.0-37.0); MEAN PLATELET VOLUME 11.9 fl (7.0-11.0); MONO # 0.5 (0.1-0.6); MONO % 7.5 % (1.0-6.0); RBC 4.87 10^6/uL (3.5-6.1); RED CELL DISTRIBUTION WIDTH 14.8 % (11.5-14.5); WHITE BLOOD COUNT 7.2 10^3/ul (4.5-11.0)
[2017-09-23] MEDS: carBAMazepine Chew Tab 100 MG Chew Tab PO SCH ×2 (09:00→16:31)
[2017-09-23] MEDS: Potassium Chloride 10 mEq ER Tab PO SCH (09:07)
[2017-09-23] MEDS: Magnesium Oxide 400 mg Tab UD PO SCH (09:07)
--- NOTE | 2017-09-23 13:13 | PN ---
DATE: PULMONARY PROGRESS NOTE SUBJECTIVE: We have been trying with difficulty to get the patient's CPAP machine from home. This would be easy because the settings are already on that machine. The family is unreachable. I would like to know the name of the [employer]ME Company, so that I can obtain settings and use a CPAP machine from the hospital. This is presently an impossibility. As such, we will order a CPAP from the hospital and start with an empiric settings of 12 cm of water. Hopefully, this will be sufficient in alleviating her sleep apnea. Once family is able to be contacted and [employer] Company can be contacted, we will know the exact settings of her sleep apnea for her CPAP. Because the patient has been worked up in [facility] and followed there, we are not privy to any additional information. Also, the patient has pulmonary hypertension. Her problem is stable at the present time. CLINICAL IMPRESSION: 1. Obstructive sleep apnea. 2. Pulmonary hypertension. 3. Hypoxemia. 4. Diabetes mellitus. 5. Personality disorder. PLAN: As discussed above. Dex Butts MD [facility]
[2017-09-23] MEDS: MELATONIN 3 MG PO SCH (22:13)
--- NOTE | 2017-09-24 00:09 | PN ---
DATE: ENDOCRINOLOGY FOLLOWUP NOTE LOCATION: Room 513. SUMMARY: This is a 57-year-old female with recent uncontrolled type 2 insulin-requiring diabetes now being followed closely for metabolic management. Her glycemic levels are fluctuating, but much improved at this time and her latest glucose levels have ranged from 136 mg/dL to 195 mg/dL. Her latest chemistry showed BUN of 54, sodium of 139, potassium of 3.7, chloride of 96, CO2 of 29, glucose of 150, and creatinine 1.4. So at this time, to allow for dose equilibration, we will continue the same premixed insulin regimen given as Humulin 70/30 24 units a.c. breakfast and 18 units a.c. dinner as ordered. We will continue the low-dose correction scale using Humalog insulin. We will titrate incrementally as indicated to optimize metabolic control. We will follow. Swetha Lowe MD
[2017-09-24] MEDS: Insulin Lispro (humaLOG) LOW Coverage SC SCH ×4 (08:34→22:00)
--- NOTE | 2017-09-24 08:39 | PCM.PYCHPN ---
Psychiatric Progress Note - Psychiatric Progress Note Patient seen today, length of contact: 25 MIN Patient Chief Complaint: "tired, I didn't sleep well" Problems Identified/Issues Discussed: I reviewed recent notes and met with patient at bedside. Patient appears unkempt and tired. She didn't sleep well last night and took off her CPAP because it was uncomfortable. Patient is fairly cooperative with questioning but thought process is scattered, repetitive and difficult to follow at times. She has a tendency to ramble. Oriented to month, year and location today. She denies depression or hallucinations. Denies any pain, discomfort or side effects from her medications. Staff notes indicate that she has been visible, loud and talkative on the unit. Still disorganized and labile but manageable. Diagnostic Results: Bipolar Disorder NOS Anxiety Disorder Medication Change: No Medical Record Reviewed: Yes Mental Status Examination - Cognitive Function Orientation: Person, Place, Situation, Time Memory: Intact Attention: WNL Concentration: Poor Association: Loose Fund of Knowledge: WNL - Mood Mood: Depressed ("tired, I didn't sleep well"), Anxious - Affect Affect: Blunted - Speech Speech: Loud, Pressured - Formal Thought Process Formal Thought Process: Other (scattered, repetitive and difficult to follow at times) - Suicidal Ideation Suicidal Ideation: No - Homicidal Ideation Homicidal Ideation: No Goal/Treatment Plan - Goal/Treatment Plan Need for Continued Stay: Remain at risks for inpatient hospitalization, Discharge may exacerbated symptoms Progress Toward Problem(s) and Goals/Treatment Plan: * c/w current tx and plan * Appreciate f/u by Dr. Butts on 09/23/17~ordered CPAP from hospital * Appreciate f/u by Dr. Lowe on 09/23/17~Glycemic levels fluctuating but improving * Vitals reviewed and noted below: 09/23/17 09/23/17 09/23/17 07:12 09:07 10:42 Temperature 98.4 F Pulse Rate 56 L 80 Respiratory 20 Rate Blood Pressure 118/93 H 118/93 H 09/23/17 09/24/17 16:00 00:08 Temperature Pulse Rate 77 64 Respiratory Rate Blood Pressure 147/94 H * New weekend labs noted below: Laboratory Results - last 24 hr 09/23/17 09/23/17 09/23/17 06:45 16:23 21:24 WBC 7.2 RBC 4.87 Hgb 12.7 D Hct 40.6 MCV 83.4 MCH 26.1 MCHC 31.3 RDW 14.8 H Plt Count 185 MPV 11.9 H Gran % 50.6 Lymph % (Auto) 36.8 H Dukes % (Auto) 7.5 H Eos % (Auto) 4.4 Baso % (Auto) 0.7 Gran # 3.65 Lymph # 2.7 Dukes # 0.5 Eos # 0.3 Baso # 0.05 POC Glucose (mg/dL) 195 H 256 H 09/24/17 07:59 WBC RBC Hgb Hct MCV MCH MCHC RDW Plt Count MPV Gran % Lymph % (Auto) Dukes % (Auto) Eos % (Auto) Baso % (Auto) Gran # Lymph # Dukes # Eos # Baso # POC Glucose (mg/dL) 166 H
[2017-09-24] MEDS: Pantoprazole 40 mg EC Tab PO SCH (08:40)
[2017-09-24] MEDS: carBAMazepine Chew Tab 100 MG Chew Tab PO SCH ×2 (08:40→16:56)
[2017-09-24] MEDS: Potassium Chloride 10 mEq ER Tab PO SCH (08:40)
[2017-09-24 08:41] LABS: CALCIUM 11.5 mg/dL (8.4-10.5)
[2017-09-24] MEDS: metOLazone 2.5 MG TAB PO SCH (08:42)
[2017-09-24] MEDS: Magnesium Oxide 400 mg Tab UD PO SCH (08:42)
[2017-09-24] MEDS: ADEMPAS 1.5 MG PO SCH ×3 (08:43→17:25)
[2017-09-24] MEDS: Insulin Human NPH/Reg 70/30 Vial(3 ml) SC SCH ×2 (08:43→16:58)
--- NOTE | 2017-09-24 09:57 | PN ---
DATE: 09/23/2017 SUBJECTIVE: This is a 57-year-old female on the Psychiatry Unit under the care of Dr. Toni Joseph. PHYSICAL EXAMINATION: GENERAL: She is alert and oriented x3. VITAL SIGNS: Temperature of 98.4, blood pressure of 118/93, pulse is 56, respiratory rate is 20, and oxygen saturation is reported at 91% on room air. LUNGS: Clear. HEART: S1 and S2 rhythm. ABDOMEN: Soft, positive bowel sounds. EXTREMITIES: No evidence of edema. LABORATORY DATA: Shows WBC of 7.2, RBC of 4.87, hemoglobin of 12.7, hematocrit of 40.6, and platelet count of 185. Chemistry shows normal electrolytes. BUN of 54, creatinine of 1.4, calcium is 11.2, and random blood sugar is 150. MEDICATIONS: The patient is currently on Geodon 60 mg b.i.d., Adempas 1.5 mg daily, sliding insulin scale for coverage, Klonopin 1 mg four times a day, Klor-Con 10 mEq daily, Lasix 40 mg daily, Lyrica 50 mg 3 times a day, Maalox p.r.n., magnesium oxide 400 mg daily, milk of magnesia p.r.n., Protonix 40 mg daily, Senokot tab daily, Tegretol 50 mg b.i.d., Thorazine 25 mg a.m. and at bedtime, Tylenol 2 tabs q.4 hours p.r.n. for moderate pain, and Zaroxolyn 2.5 mg daily. ASSESSMENT AND PLAN: The patient has a history of sleep apnea being followed by Pulmonary as well as pulmonary hypertension. We will follow up the patient's chemistries. She has been encouraged to drink fluids and check her calcium level and parathyroid hormone level. Her family has been requested to bring sleep apnea equipment from home, however, the staff relates that the patient's family states that the equipment is not working. We will speak with Pulmonary regarding this. She will continued to be monitored on the Psychiatry Unit and she has been followed by Renal and by Psychiatry, Pulmonary, and Endocrinology. Suyapa Benjamin MD [facility] # [id number]
--- NOTE | 2017-09-24 14:13 | PN ---
DATE: 09/24/2017 SUBJECTIVE: This is a 57-year-old female on a Psychiatry unit. Nursing staff relates that there were no particular problems during the night. PHYSICAL EXAMINATION: VITAL SIGNS: Her pulse is 64, her blood pressure is 113/58, and her temperature is 98.7. NECK: Supple. LUNGS: Clear. HEART: S1 and S2 rhythm. ABDOMEN: Soft and positive bowel sounds. EXTREMITIES: No evidence of edema. NEUROLOGIC: She is alert and oriented x3. LABORATORY DATA: Shows sodium of 137, potassium of 3.5, chloride of 93, CO2 of 32, BUN is 49, and creatinine is 1.5. Random blood sugar is 166 and serum calcium is 11.5. A parathyroid hormone has been requested and it is also pending. ASSESSMENT AND PLAN: The patient has a history of pulmonary hypertension, sleep apnea, insulin dependent diabetes, depression, and anxiety disorder. She is currently being followed by Endocrinology for her diabetes and she is also being followed by Pulmonary for pulmonary hypertension and sleep apnea. She has a glomerular filtration rate of 39 with elevation of BUN and creatinine and given her underlying diabetic history, we will get a Renal evaluation,,. given the elevation in the calcium and elevation in the creatinine ., She is on potassium supplementation. We will check her parathyroid hormone and follow up her chemistries. Suyapa Benjamin MD [facility]
[2017-09-24] MEDS ORDERED: Insulin Human NPH/Reg 70/30 Vial(3 ml) SC SCH (16:38)
[2017-09-24] MEDS: MELATONIN 3 MG PO SCH (21:01)
--- NOTE | 2017-09-24 21:49 | PN ---
DATE: ENDOCRINOLOGY FOLLOWUP NOTE LOCATION: Room 513, psychiatry. SUBJECTIVE: This is a 57-year-old female with recent admission for major depression and generalized anxiety with behavioral disturbances, currently being followed closely in the Psychiatric Unit as noted. She remains clinically euthyroid at this time and the latest chemistry showed BUN of 49, sodium 137, potassium 3.5, chloride 93, CO2 of 32, glucose 189, and creatinine 1.5. The repeat calcium level is since likely elevated at 11.5 mg/dL. Her glycemic levels are fluctuating at this time, ranging from 166 to 256 mg/dL. So at this time, we will modify once again her premixed insulin regimen and increase the Humulin 70/30 to 28 units a.c. breakfast and increase the Humulin 70/30 to 20 units a.c. dinner to start today as ordered. We will continue the low-dose correction scale using Humalog insulin as given. We will titrate incrementally as indicated to optimize metabolic control. We will follow and advise accordingly. Swetha Lowe MD
[2017-09-25 07:15] VITALS: O2SAT 95
[2017-09-25] MEDS ORDERED: Insulin Human NPH/Reg 70/30 Vial(3 ml) SC SCH (07:30)
--- NOTE | 2017-09-25 08:27 | PN ---
DATE: PULMONARY PROGRESS NOTE SUBJECTIVE: The patient appears comfortable this morning. She is not short of breath at rest. OBJECTIVE: VITAL SIGNS: Temperature is 97.8, pulse is 63, respirations are 18, blood pressure is 112/43, and oxygen saturation on room air is 95%. HEENT: Normocephalic and atraumatic. NECK: No JVD. CARDIOVASCULAR: Positive S1 and S2. No S3 gallop. LUNGS: Clear bilaterally. EXTREMITIES: No clubbing, cyanosis or edema. Calves are nontender to palpation. GASTROINTESTINAL: Abdomen is soft, nontender, and nondistended. Bowel sounds are positive. SKIN: No acute rash. NEUROLOGIC: Limited at the present time. IMPRESSION: 1. Obstructive sleep apnea. 2. Pulmonary hypertension. 3. Oxygen desaturation at night. 4. Diabetes mellitus. 5. Organic personality disorder. PLAN: The patient appears very comfortable this morning. She is not short of breath at rest. On physical exam, her lungs remain clear. Oxygen saturation on room air is 95%. I will continue with the CPAP at night. I will also continue with the Adempas - for pulmonary hypertension. Additional management will be as per Internal Medicine and Psychiatry. Clinical status appears improved. Sahil Henry MD MTDD
[2017-09-25] MEDS: ADEMPAS 1.5 MG PO SCH ×3 (08:32→18:03)
[2017-09-25] MEDS: metOLazone 2.5 MG TAB PO SCH (08:33)
[2017-09-25] MEDS: carBAMazepine Chew Tab 100 MG Chew Tab PO SCH ×2 (08:33→18:01)
[2017-09-25] MEDS: Potassium Chloride 10 mEq ER Tab PO SCH (08:33)
[2017-09-25] MEDS: Magnesium Oxide 400 mg Tab UD PO SCH (08:34)
[2017-09-25] MEDS: Pantoprazole 40 mg EC Tab PO SCH (08:34)
[2017-09-25] MEDS: Insulin Lispro (humaLOG) LOW Coverage SC SCH ×4 (08:35→22:22)
--- NOTE | 2017-09-25 09:11 | PN ---
DATE: 09/23/2017 SUBJECTIVE: A 57-year-old female resting in bed this morning. Nursing staff relates that there are no particular problems during the night. PHYSICAL EXAMINATION: VITAL SIGNS: Temp is 98.4, pulse is 80, blood pressure 118/93, respiratory rate is 20. GENERAL: She is alert and oriented x3. NECK: Supple. No JVD. LUNGS: Clear. HEART: Regular S1 and S2 rhythm. ABDOMEN: Soft with positive bowel sounds. EXTREMITIES: No evidence of edema. LABORATORY DATA: WBC of 7.2, RBC of 4.87, hemoglobin 12.0, hematocrit 40.6, and platelet count 185. Chemistry showed normal electrolytes, the BUN is 54, creatinine is 1.4, and the blood sugar is 136. Currently, the patient is on Geodon 60 mg b.i.d., Humalog sliding insulin scale, Klonopin 1 mg four times a day, Klor-Con 10 mEq daily, Lasix 40 mg daily, Lyrica 50 mg t.i.d., Maalox 30 mL p.o. daily p.r.n., magnesium oxide 40 mg daily, milk of magnesia 30 mL p.o. daily p.r.n., Protonix 40 mg daily, Senokot 1 tab daily, Tegretol 50 mg b.i.d., Thorazine 25 mg a.m. and at bedtime, Zaroxolyn 2.5 mg daily, and Tylenol 2 tabs q. 4 hours p.r.n. for moderate pain. ASSESSMENT AND PLAN: She was seen by Pulmonary yesterday for sleep apnea and pulmonary hypertension. Requests has been made with the family to bring her CPAP unit from home, but the nurses report that they stated the CPAP unit is not working. She has also been recommended to use nasal oxygen at night. We will discuss with the Pulmonary today requiring CPAP unit to the hospital. She is being followed by Endocrinology for her diabetes. We will follow up her serum calcium level. She is being followed by Pulmonary for her pulmonary hypertension and sleep apnea and by Psychiatry for her depression and anxiety. Suyapa Benjamin MD
--- NOTE | 2017-09-25 09:30 | PN ---
DATE: 09/24/2017 PULMONARY PROGRESS NOTE SUBJECTIVE: Unfortunately, the patient's family states that her CPAP at home has broken. This is not adventitious to her general status including obstructive sleep apnea. We have instituted CPAP at this time using a hospital machine with empiric settings. This is not optimal but no further information is obtained. The patient's family will need to get in contact with her [employer] Supervisor and primary physician to obtain new equipment as rapidly as possible. This will enable the patient to have CPAP since she is discharged. Social Service must discussed these problems with the family. Unfortunately, despite having CPAP at the bedside, the patient is refusing to use this machine. This is potentially life-threatening condition and she needs to use the CPAP and family must encourage the patient to use this machine despite her desire not use this, it is important. Psychiatry should discuss this with her as well. CLINICAL IMPRESSION: 1. Obstructive sleep apnea. 2. Pulmonary hypertension. 3. Hypoxemia. 4. Diabetes mellitus. 5. Personality disorder. Regarding her pulmonary hypertension, she should continue her medications and see her [employer] Supervisor as soon as she is discharged from [facility]. We will follow closely with you as necessary. Dex Butts MD MTDElena
[2017-09-25 11:57] LABS: CALCIUM 11.8 mg/dL (8.4-10.5)
[2017-09-25] MEDS: Magnesium Hydroxide Susp 30 ml UD PO PRN (15:58)
[2017-09-25] MEDS ORDERED: Potassium Chloride 20 mEq ER Tab PO STA (16:05)
[2017-09-25] MEDS: Insulin Human NPH/Reg 70/30 Vial(3 ml) SC SCH (18:16)
[2017-09-25] MEDS: MELATONIN 3 MG PO SCH (21:30)
--- NOTE | 2017-09-25 22:43 | PN ---
DATE: SUBJECTIVE: The patient is a 57-year-old white female with an atypical bipolar disorder and organic personality disorder, admitted in an agitated state with pressured speech and impulsive activity. The patient was interviewed today both with her family (two brothers) and two brothers were met with alone. The patient has difficulty in dealing with her 12-year-old son, her , and her sister were reviewed. The patient's response to her 's response to her and avoidance of any mental health involvement were reviewed. The patient due to her infirmities starting in infancy have led to her to become dependent and this has fostered a state of that the family cannot always meet, but which the patient generally demands being met leading to ongoing family conflict. The patient also has a history of paranoid ideation at times. It is reported by the family that the patient's is unable to handle her mental state. The brothers feel the patient's state has improved. The patient is still engages in rapid loud speech, impulsive behavior, insistence on greater from her extended family, which includes siblings, nieces, children with they have been unable thus far to set limits. The patient does not appear to be psychotic. She does not appear to be suicidal or homicidal. She is being maintained on Geodon 60 mg b.i.d., Klonopin 1 mg four times daily, Lyrica 50 mg t.i.d., Protonix 40 mg daily, Senokot 8.6 mg daily, Tegretol 50 mg b.i.d., and Thorazine 25 mg a.m. and at bedtime. Case has been discussed with Dr. Benjamin, reviewing her multiple medical problems including pulmonary hypertension, renal impairment, and sleep apnea. Unfortunately, despite having a CPAP at her bedside, she is refusing to use this machine for this potentially life-threatening condition. The patient also has diabetes mellitus. She is being followed by Endocrinology (Dr. Lowe) and is clinically euthyroid. Her oxygen saturation at room temperature is 95%. She is being maintained on Adempas for pulmonary hypertension. From a pulmonary status (and also from the psychiatric status) it appears that her status has improved. Toni Joseph MD/ PhD
--- NOTE | 2017-09-25 23:46 | CON ---
DATE: 09/25/2017 REASON FOR CONSULTATION: Acute kidney injury. HISTORY OF PRESENT ILLNESS: A 57-year-old lady seen in the psychiatric unit. She is admitted here for depression. She gets a history of diabetes for 20 plus years. She also gets a history of diabetic retinopathy. She denies any history of hypertension. She reports she has pulmonary hypertension, and she takes Lasix 40 mg and Zaroxolyn 2.5 mg daily. She denies any history of any CAD. Consultation is requested for her because her creatinine is 1.5 today. Her baseline creatinine is around 1.2. PAST MEDICAL/SURGICAL HISTORY: NIDDM, hypertension, hyperlipidemia, anxiety disorder, depression, chronic schizoaffective disorder. FAMILY HISTORY: Hypertension. SOCIAL HISTORY: No smoking, no alcohol use, no IV drug abuse. ALLERGIES: NO KNOWN DRUG ALLERGIES. MEDICATIONS AT HOME: Zaroxolyn 2.5 daily, potassium 10 mEq daily, magnesium oxide 400 daily, Lasix 40 daily, Lipitor 40 daily, melatonin, Protonix 40 daily, Lyrica 50 t.i.d. REVIEW OF SYSTEMS: Currently, she has no chest pain, no shortness of breath, no palpitations. No nausea, vomiting, or diarrhea. She denies any urinary complaints. All other symptoms are reviewed and unremarkable. PHYSICAL EXAMINATION: GENERAL: Obese middle-aged lady, sitting in chair. VITAL SIGNS: Blood pressure 128/89, heart rate 63, respiratory rate 18, temperature 97.8. HEENT: Normocephalic, atraumatic, positive pallor. NECK: Supple, no JVD. LUNGS: Bilateral equal air entry, bilateral equal expansion, no rales. CARDIAC: S1, S2. Regular rate and rhythm, positive murmur, no rub. ABDOMEN: Obese, distended, soft, nontender. Bowel sounds present. EXTREMITIES: No lower extremity edema. INTAKE AND OUTPUT: Not charted. LABORATORY DATA: WBC 7.2, hemoglobin 12.7, hematocrit 40, platelets 185. Sodium 137, potassium 3.4, chloride 91, CO2 of 24, BUN 51, creatinine 1.4, glucose 276, calcium 11.8, magnesium 1.8. CURRENT MEDICATIONS: Geodon, Adempas, melatonin, insulin, Klonopin, potassium 10 mEq daily, Lasix 40 daily, Lyrica 50 t.i.d., Maalox, magnesium oxide, Milk of Magnesia, Protonix 40, Senokot 8.6, Tegretol 50 b.i.d., Thorazine 25 at meals and hour of sleep, Tylenol, Zaroxolyn 2.5 daily. ASSESSMENT AND PLAN 1. Acute kidney injury, superimposed on chronic kidney disease stage II? 2. Hypokalemia, alkalemia, likely secondary to loses because of the Zaroxolyn and Lasix. 3. Hypercalcemia. 4. Longstanding non-insulin dependent diabetes mellitus. 5. No history of hypertension. PLAN: 1. Hold Zaroxolyn 2. Replace potassium aggressively. 3. Check intact PTH, vitamin D. 4. Push p.o. intake. 5. Check phosphorus levels. Thank you for the courtesy of this consultation. We will follow this patient closely. We will need further recommendations once workup becomes available. Kandis Jones MD
--- NOTE | 2017-09-26 01:52 | PN ---
DATE: SUBJECTIVE: This 57-year-old female on the psychiatry unit, being followed for depression and anxiety with history of sleep apnea, pulmonary hypertension, hypercalcemia, insulin-dependent diabetes mellitus. OBJECTIVE: VITAL SIGNS: She had a temperature of 97.8, pulse of 63, blood pressure 112/43, respiratory rate 18, and oxygen saturation of 95% on room air. GENERAL: She is alert and oriented x3. NECK: Supple. LUNGS: Clear. HEART: S1 and S2 rhythm. ABDOMEN: Soft, positive bowel sounds. EXTREMITIES: Show no evidence of edema. LABORATORY DATA: Shows sodium of 137, potassium of 3.4, chloride of 91, CO2 of 34, BUN of 51, and creatinine of 1.4. Random blood sugar is 131, calcium is 11.8, phosphorus is 3.5, intact parathyroid hormone is 135. ASSESSMENT AND PLAN: The patient declined using a CPAP unit. She continues on psych medications as per her anxiety and depression history, being followed by Dr. Joseph. She will be seen by Renal for her prerenal azotemia, chronic renal insufficiency, hyperparathyroid disease and hypercalcemia. Her Zaroxolyn is currently on hold, and we will continue current level of care. At this time, a request has been made for physical therapy evaluation. Suyapa Benjamin MD
--- NOTE | 2017-09-26 08:25 | PN ---
DATE: 09/25/2017 SUBJECTIVE: This is a 57-year-old female with recent uncontrolled type 2 insulin-requiring diabetes, now being followed closely with metabolic management. Her glycemic levels are fluctuating, but much improved at this time, and today's the glucose levels have ranged from 131 to 213 and 260 mg/dL. LABORATORY DATA: Her latest chemistry shows a BUN of 51, sodium 137, potassium 3.4, chloride 91, CO2 34, glucose 276, and creatinine 1.4. PLAN: At this time, we will continue the same pre-admit insulin regimen to allow for dose of deliberation. I will keep her on the Humulin at 70/30, giving a higher dose of 32 units before breakfast to start tomorrow morning as ordered. We will also increase the insulin with Humulin 70/30 to be treated as 24 units up to before dinner daily as ordered. We will titrate ____ to optimize metabolic control. We will continue the low dose correction scale using Humalog insulin as given . We will metformin as needed. We will follow with you. Swetha Lowe MD
[2017-09-26 08:52] LABS: BLOOD UREA NITROGEN 54 mg/dL (7-21); CALCIUM 11.7 mg/dL (8.4-10.5); GFR AFRICAN-AMERICAN > 60; GFR NON-AFRICAN AMERICAN 52
[2017-09-26] MEDS: carBAMazepine Chew Tab 100 MG Chew Tab PO SCH (09:20)
[2017-09-26] MEDS: Pantoprazole 40 mg EC Tab PO SCH (09:21)
[2017-09-26] MEDS: ADEMPAS 1.5 MG PO SCH ×3 (09:22→17:05)
[2017-09-26] MEDS: Insulin Lispro (humaLOG) LOW Coverage SC SCH ×4 (09:22→22:00)
[2017-09-26] MEDS: Magnesium Oxide 400 mg Tab UD PO SCH (09:22)
[2017-09-26] MEDS: Insulin Human NPH/Reg 70/30 Vial(3 ml) SC SCH ×2 (09:23→17:05)
[2017-09-26] MEDS: Magnesium Hydroxide Susp 30 ml UD PO PRN (09:34)
--- NOTE | 2017-09-26 13:05 | PN ---
DATE: SUBJECTIVE: This is a 57-year-old female in the dining area, she says that she had a good night last night. Nursing staff relates that there were no problems. PHYSICAL EXAMINATION: VITAL SIGNS: Her temperature is 97.9, her blood pressure is 115/56, her pulse is 55, respiratory rate is 20 and oxygen saturation is reported as 95% on room air. LUNGS: Clear. HEART: S1 and S2 rhythm. ABDOMEN: Obese, soft, and positive bowel sounds. EXTREMITIES: No evidence of edema. LABORATORY DATA: Her electrolytes showed sodium of 140, potassium of 3.9, chloride of 97, BUN is 54, and the creatinine is 1.1. Random blood sugar is 101. Calcium is 11.7 and her phosphorous is 3.5. IMPRESSION AND PLAN: The patient is on the Psychiatry Unit under the care of Dr. Toni Joseph. She has been treated for depression. She has underlying sleep apnea, pulmonary hypertension, elevated serum calcium, elevated parathyroid hormone and acute renal injury in the setting of chronic renal disease possibly stage 2. History of diabetic retinopathy. There is no history of hypertension as per the patient. She states that she has had a fungal infection of her foot before and is wondering if she can get a Podiatry follow up, which will be discussed with the staff. We request a Podiatry consult and continue current level of care. MEDICATIONS: She continues at this time on Geodon 60 mg b.i.d. and sliding insulin scale. She is on Klonopin 1 mg q.i.d., Lasix 40 mg daily, Lyrica 50 mg t.i.d., Maalox 30 mL p.r.n. daily,magnesium oxide 400 mg daily, milk of magnesia 30 mg daily p.r.n., Protonix 40 mg daily, Senokot 8.6 mg p.o. daily, Tegretol 50 mg b.i.d., Thorazine 25 mg in the morning and at bedtime, Tylenol 2 tablets q. 4 hours p.r.n. for moderate pain, and Zaroxolyn 2.5 mg daily. Her home medications are Adempas 1.5 mg daily placed on t.i.d. through Pulmonary's recommendation. Suyapa Benjamin MD [facility] # [id number]
--- NOTE | 2017-09-26 19:09 | PN ---
DATE: 09/26/2017 SUBJECTIVE: The patient is seen walking in the hallway. She is awake. She is alert. She reports that she has been drinking a lot of water. PHYSICAL EXAMINATION GENERAL: Obese middle-aged lady. VITAL SIGNS: Blood pressure 115/56, heart rate 55, respiratory rate 20 and temperature 97.9. NECK: Supple, no JVD. LUNGS: Bilateral equal entry rales. CARDIAC: S1 and S2, regular rate and rhythm, positive murmur, no rub. ABDOMEN: Obese, distended, soft, nontender, bowel sounds present. EXTREMITIES: No lower extremity edema. LABORATORY DATA: Sodium 140, potassium 3.9, chloride 97, CO2 of 34, BUN 54, creatinine 1.1, glucose 110, calcium 11.7. PTH 142. Vitamin D 46. CURRENT MEDICATIONS: 1. Geodon. 2. Insulin. 3. Klonopin. 4. Lasix 40 daily. 5. Lyrica. 6. Mag oxide. 7. Milk of magnesia. 8. Neurontin. 9. Protonix. 10. Senokot. 11. Thorazine. 12. Tylenol. ASSESSMENT: 1. Resolved acute kidney injury. 2. Hypercalcemia, workup consistent with primary hyperparathyroidism. 3. Noninsulin-dependent diabetes mellitus. 4. Pulmonary hypertension. 5. Depression. 6. Hyperlipidemia. 7. Obesity. PLAN: 1. Parathyroid imaging scan. 2. Continue to hold Zaroxolyn. 3. Continue Lasix 40 mg daily. 4. Monitor fingersticks. Kandis Jones MD
[2017-09-26] MEDS: MELATONIN 3 MG PO SCH (21:51)
--- NOTE | 2017-09-27 00:11 | PN ---
DATE: IDENTIFICATION INFORMATION: The patient is a 57-year-old white female with an organic mood disorder, possible bipolar disorder who had been exhibited to the state of extreme distress and mood lability. The patient's mood and affect appear to be improving. She is less pressured although still loud, less impulsive although still impatient, less needy although still insisting on a one-on-one. She is not overtly psychotic nor homicidal, but her insight and judgment are considered to be impaired. I have opted to stop the patient's carbamazepine which she could not tolerate except at low doses (excessive sedation), and have put the patient on Neurontin for its tranquilizing and mood stabilizing potential problems (superimposed on her already been on Lyrica). The patient is also on Geodon and low-dose Thorazine. Blood pressure seems to be maintained at perhaps acceptably reduced level (115/56) with pulse 55, temperature 97.9, respiratory rate 20. The patient is being treated for diabetes mellitus, sleep apnea, pulmonary hypertension. She has had visual problems since a hypoxic or anoxic episode in an incubator after premature and he may have suffered a central neurologic sequelae from that event as well. She is also dealing with the domestic turmoil including conflict with her and difficulty managing a truculent 12-year-old son. Laboratory values reviewed. Blood sugar earlier today he was elevated at 230. On the whole, the patient appears to be slowly but steadily improving, with decreased pressure of speech, decreased impulsivity, somewhat improved ability to listen and interaction with others. Toni Joseph MD/ PhD
[2017-09-27] MEDS: Insulin Human NPH/Reg 70/30 Vial(3 ml) SC SCH ×2 (07:30→17:00)
[2017-09-27] MEDS: Insulin Lispro (humaLOG) LOW Coverage SC SCH ×4 (07:30→22:30)
[2017-09-27] MEDS: ADEMPAS 1.5 MG PO SCH ×3 (08:00→17:16)
--- NOTE | 2017-09-27 08:54 | PN ---
DATE: 09/27/2017 PULMONARY NOTE SUBJECTIVE: The patient is resting in bed. She is very comfortable. She is wearing nasal cannula. PHYSICAL EXAMINATION: VITAL SIGNS: Temperature is 97.9, pulse 65, respirations 18, blood pressure 119/51. HEENT: Normocephalic, atraumatic. NECK: No JVD. Cardiovascular: Positive S1, S2. No S3 gallop. LUNGS: Clear bilaterally. EXTREMITIES: No clubbing, cyanosis or edema. Calves are nontender to palpation. GI: Abdomen is soft, nontender and nondistended. Bowel sounds are positive. SKIN: No acute rash. NEUROLOGIC: Exam limited at the present time. IMPRESSION: 1. Obstructive sleep apnea. 2. Pulmonary hypertension. 3. Oxygen desaturation at night. 4. Diabetes mellitus. 5. Organic personality disorder. PLAN: The patient appears very comfortable this morning. She is not short of breath at rest. She does state to feeling better overall. On physical exam, her lungs remain clear. I would continue with the CPAP at night. I would also continue with oxygen supplementation at night. Lastly, I would continue with the Adempas - for her pulmonary hypertension. Additional management of this case will be as per Internal Medicine and Psychiatry. Inputs are noted. At this point in time, no additional pulmonary intervention is needed or warranted. Please call me for any additional pulmonary questions or problems with this patient. I would be happy to reevaluate. Thank you for allowing me to participate in the care of this patient. Sahil Henry MD MTDElena
--- NOTE | 2017-09-27 08:58 | PN ---
ENDOCRINOLOGY FOLLOWUP NOTE LOCATION: Room 513. SUBJECTIVE: This is a 57-year-old female with recent uncontrolled type 2 insulin-requiring diabetes, now being followed closely for metabolic management. Her glycemic levels are fluctuating, but improved and ranged from 101 to 158 and 230 mg/dL. Her latest chemistry showed a BUN of 54, sodium 140, potassium 3.9, chloride 97, CO2 of 34, glucose 110, creatinine 1.1, calcium level is 11.7 and it remains persistently slightly elevated as noted. The parathyroid hormone intact level is 142 consistent with a focal primary hyperparathyroidism. Would highly recommend a parathyroid scan to isolate the adenoma as indicated and this could be done as an outpatient. Would consider her young age, she would absolutely qualify for parathyroid resection if the patient agrees thereof. However, with the current mental and psychological state, this would not be the right time to discuss the therapeutic options at this time. We will do so as outpatient when she is emotionally less labile and dysphoric. We will continue at this time with same premixed insulin regimen with Humulin 70/30 given as 32 units a.c. breakfast and 24 units a.c. dinner as ordered. We will titrate incrementally as indicated to optimize metabolic control. We will follow with you. Swetha Lowe MD
--- NOTE | 2017-09-27 11:55 | PN ---
DATE: SUBJECTIVE: This is a 57-year-old female on the psychiatry unit with an organic personality disorder, being followed by Psychiatry. PHYSICAL EXAMINATION: VITAL SIGNS: This morning showed a temperature of 97.9, pulse is 65 and regular, blood pressure is 119/51, respiratory rate is 20. GENERAL: The patient stated she had a quite comfortable night with no specific problems. She is alert. NECK: Supple. LUNGS: Clear. HEART: S1 and S2 rhythm. ABDOMEN: Soft. Positive bowel sounds. EXTREMITIES: Shows no evidence of edema. LABORATORY DATA: Her blood sugar this morning was 153. The patient is scheduled for a nuclear scan for a parathyroid organ with an elevation in her calcium and elevated parathyroid hormone. She is being followed by Pulmonary for sleep apnea and pulmonary hypertension, by Endocrinology for insulin-dependent diabetes, by Renal for her renal insufficiency history. Currently, she is on 60 mg of Geodon b.i.d., melatonin at bedtime, Adempas for pulmonary hypertension 3 times a day, sliding insulin scale which has been held at the moment, Klonopin 1 mg p.o. q.i.d., Lasix 40 mg daily, Lyrica 50 mg t.i.d., Maalox p.r.n., magnesium oxide 400 mg daily, milk of magnesia p.r.n., Neurontin 200 mg t.i.d., Protonix 40 mg daily, Senokot 1 daily, Thorazine 25 mg twice a day, Tylenol 2 tablets q.4 hours p.r.n. for moderate pain, and Zaroxolyn 2.5 mg daily. I will continue to monitor the patient. Follow her chemistries. Await the parathyroid studies. She will continue her psych social support. She continues the use of CPAP unit at night. Suyapa Benjamin MD
[2017-09-27] MEDS: Pantoprazole 40 mg EC Tab PO SCH (13:01)
[2017-09-27] MEDS: Magnesium Oxide 400 mg Tab UD PO SCH (13:02)
--- NOTE | 2017-09-27 14:04 | NM ---
PROCEDURE: Nuclear medicine Parathyroid Scan HISTORY: primary HPT COMPARISON: None available. TECHNIQUE: 23.2 mCi of technetium sestamibi was administered intravenously. Planar images of the neck were obtained at 15 min and 3 hr post tracer injection. FINDINGS: Homogeneous symmetric uptake of sestamibi was demonstrated the thyroid gland. No delayed focal uptake was observed to suggest a parathyroid adenoma. Physiologic uptake was seen in the salivary glands. IMPRESSION: No evidence of parathyroid adenoma.
--- NOTE | 2017-09-27 16:14 | PCM.PYCHPN ---
Psychiatric Progress Note - Psychiatric Progress Note Patient seen today, length of contact: 25 MIN Patient Chief Complaint: "I feel better, Do I look better?" Problems Identified/Issues Discussed: Suicide/ homicide prevention, past psychiatric h/o, current psychiatric symptoms , medical problems, risk/benefits and alternatives of medications, medications compliance, coping strategies, substance abuse h/o, relapse prevention, importance of follow up with psychiatrist and therapist, discharge plan. Medical Problems: see HPI Diagnostic Results: 09/23/17 06:45 09/26/17 08:10 Lab Results 09/27/17 11:54: POC Glucose (mg/dL) 155 H 09/27/17 07:14: POC Glucose (mg/dL) 153 H 09/26/17 21:34: POC Glucose (mg/dL) 165 H 09/26/17 15:44: POC Glucose (mg/dL) 147 H 09/26/17 10:55: POC Glucose (mg/dL) 230 H 09/26/17 08:10: Sodium 140, Potassium 3.9, Chloride 97 L, Carbon Dioxide 34 H, Anion Gap 13, BUN 54 H, Creatinine 1.1, Est GFR ( Amer) > 60, Est GFR ( Non-Af Amer) 52, Random Glucose 110, Calcium 11.7 H 09/26/17 07:29: POC Glucose (mg/dL) 101 09/25/17 21:28: POC Glucose (mg/dL) 158 H 09/25/17 17:32: 25-OH Vitamin D Total 46.2 09/25/17 17:32: PTH Intact Whole [place] 142 H 09/25/17 17:32: Phosphorus 3.5 09/25/17 16:06: POC Glucose (mg/dL) 150 H 09/25/17 11:41: POC Glucose (mg/dL) 260 H 09/25/17 10:17: Sodium 137, Potassium 3.4 L, Chloride 91 L, Carbon Dioxide 34 H , Anion Gap 15, BUN 51 H, Creatinine 1.4 H, Est GFR ( Amer) 47, Est GFR ( Non-Af Amer) 39, Random Glucose 276 H, Calcium 11.8 H 09/25/17 07:13: POC Glucose (mg/dL) 131 H 09/24/17 16:35: POC Glucose (mg/dL) 213 H 09/24/17 10:27: Magnesium 1.8 09/24/17 08:20: PTH Intact Whole [place] 135 H 09/24/17 08:20: Sodium 137, Potassium 3.5 L, Chloride 93 L, Carbon Dioxide 32, Anion Gap 15, BUN 49 H, Creatinine 1.5 H, Est GFR ( Amer) 44, Est GFR ( Non-Af Amer) 36, Random Glucose 189 H, Calcium 11.5 H 09/24/17 07:59: POC Glucose (mg/dL) 166 H 09/23/17 21:24: POC Glucose (mg/dL) 256 H 09/23/17 16:23: POC Glucose (mg/dL) 195 H 09/23/17 07:40: POC Glucose (mg/dL) 136 H 09/23/17 06:45: Sodium 139, Potassium 3.7, Chloride 96 L, Carbon Dioxide 29, Anion Gap 17, BUN 54 H, Creatinine 1.4 H, Est GFR ( Amer) 47, Est GFR ( Non-Af Amer) 39, Random Glucose 150 H, Calcium 11.2 H, Total Bilirubin 0.8, AST 19, ALT 31, Alkaline Phosphatase 80, Total Protein 8.4 H, Albumin 4.5, Globulin 3.9, Albumin/Globulin Ratio 1.2 09/23/17 06:45: WBC 7.2, RBC 4.87, Hgb 12.7 D, Hct 40.6, MCV 83.4, MCH 26.1, MCHC 31.3, RDW 14.8 H, Plt Count 185, MPV 11.9 H, Gran % 50.6, Lymph % (Auto) 36.8 H, [place] % (Auto) 7.5 H, Eos % (Auto) 4.4, Baso % (Auto) 0.7, Gran # 3.65, Lymph # 2.7, [place] # 0.5, Eos # 0.3, Baso # 0.05 09/22/17 21:06: POC Glucose (mg/dL) 315 H 09/22/17 16:03: POC Glucose (mg/dL) 249 H 09/22/17 11:32: POC Glucose (mg/dL) 312 H 09/22/17 07:20: POC Glucose (mg/dL) 216 H 09/21/17 21:22: POC Glucose (mg/dL) 152 H 09/21/17 16:39: POC Glucose (mg/dL) 173 H 09/21/17 11:37: POC Glucose (mg/dL) 253 H 09/21/17 07:15: POC Glucose (mg/dL) 228 H 09/20/17 21:44: POC Glucose (mg/dL) 211 H 09/20/17 16:07: POC Glucose (mg/dL) 209 H 09/20/17 11:49: POC Glucose (mg/dL) 177 H 09/20/17 07:35: POC Glucose (mg/dL) 157 H 09/20/17 07:30: Hemoglobin A1c 6.5 09/20/17 07:30: Sodium 139, Potassium 4.1, Chloride 102, Carbon Dioxide 27, Anion Gap 14, BUN 40 H, Creatinine 1.2, Est GFR ( Amer) 56, Est GFR (Non- Af Amer) 47, Random Glucose 182 H, Calcium 10.9 H, Total Bilirubin 0.7, AST 19, ALT 34, Alkaline Phosphatase 67, Total Protein 7.2, Albumin 4.1, Globulin 3.1, Albumin/Globulin Ratio 1.3, Triglycerides 90, Cholesterol 122 L, LDL Cholesterol Direct 45, HDL Cholesterol 51 09/20/17 07:30: RPR Nonreactive 09/20/17 07:30: Free T4 1.24, TSH 3rd Generation 0.61 09/19/17 22:41: POC Glucose (mg/dL) 147 H 09/19/17 15:20: POC Glucose (mg/dL) 123 H 09/19/17 12:45: POC Glucose (mg/dL) 211 H 09/19/17 09:59: POC Glucose (mg/dL) 181 H 09/19/17 04:20: Urine Opiates Screen Negative, Urine Methadone Screen Negative, Ur Barbiturates Screen Negative, Ur Phencyclidine Scrn Negative, Ur Amphetamines Screen Negative, U Benzodiazepines Scrn Negative, U Oth Cocaine Metabols No result, U Cannabinoids Screen Negative 09/19/17 04:20: Urine Color Yellow, Urine Appearance Sl cloudy, Urine pH 6.0, Ur Specific [place] <= 1.005, Urine Protein Negative, Urine Glucose (UA) Negative, Urine Ketones Negative, Urine Blood Negative, Urine Nitrate Negative, Urine Bilirubin Negative, Urine Urobilinogen 0.2, Ur Leukocyte Esterase Moderate H, Urine RBC 0 - 2, Urine WBC 5 - 10, Ur Epithelial Cells 1 - 3, Urine Bacteria Rare 09/19/17 04:00: Alcohol, Quantitative < 10 09/19/17 04:00: Salicylates < 1 L, Acetaminophen 10.0 09/19/17 04:00: Sodium 140, Potassium 4.4, Chloride 102, Carbon Dioxide 28, Anion Gap 14, BUN 40 H, Creatinine 1.5 H, Est GFR ( Amer) 44, Est GFR ( Non-Af Amer) 36, Random Glucose 139 H, Calcium 11.0 H, Total Bilirubin 0.7, AST 23, ALT 32, Alkaline Phosphatase 68, Total Protein 7.1, Albumin 3.9, Globulin 3.2, Albumin/Globulin Ratio 1.2 09/19/17 04:00: WBC 6.8, RBC 4.02, Hgb 10.3 L, Hct 34.0 L, MCV 84.6, MCH 25.6, MCHC 30.3 L, RDW 15.1 H, Plt Count 156, MPV 11.9 H, Gran % 54.3, Lymph % (Auto) 33.7, [place] % (Auto) 7.1 H, Eos % (Auto) 4.3, Baso % (Auto) 0.6, Gran # 3.69, Lymph # 2.3, [place] # 0.5, Eos # 0.3, Baso # 0.04 Vital Signs Temp Pulse Resp BP Pulse Ox 09/27/17 13:00 119/51 L 09/27/17 07:26 97.9 F 65 20 119/51 L 09/26/17 16:30 55 L 104/64 09/26/17 09:21 115/56 L 09/26/17 07:21 97.9 F 55 L 20 115/56 L 09/25/17 08:32 128/89 09/25/17 06:58 97.8 F 63 18 112/43 L 95 09/24/17 08:42 113/58 L 09/24/17 00:08 64 09/23/17 16:00 77 147/94 H 09/23/17 10:42 80 09/23/17 09:07 118/93 H 09/23/17 07:12 98.4 F 56 L 20 118/93 H 09/22/17 09:05 124/55 L 09/21/17 16:30 56 L 107/52 L 09/21/17 09:14 118/72 09/21/17 07:34 98.0 F 56 L 20 118/72 09/20/17 16:09 46 L 114/50 L 09/20/17 08:32 133/53 L 09/20/17 08:05 97.8 F 52 L 20 104/44 L 09/20/17 07:39 97.8 F 52 L 20 104/44 L 09/19/17 16:59 122/60 09/19/17 14:30 98.2 F 53 L 17 122/60 09/19/17 13:50 98.9 F 99 H 16 122/65 99 09/19/17 10:35 86 18 135/68 98 09/19/17 07:53 98.1 F 83 16 116/59 L 94 L 09/19/17 04:19 97.6 F 61 17 141/68 95 DSM 5 Symptoms Update: Covering for pt was seen and examined in her room. 's and notes reviewed, pt had parathyorid nuclear scan, which did not show parathyroid adenoma pt was seen by medical/pulmonology/endocrinology teams, notes reviewed. discussed with staff, as per report pt is doing much better, much calmer, no agitation or aggression, at times pt could be loud. pt has long h/o mood spectrum disorder, was admitted for agitation, mood stabilization. pt said "I feel better, do I look better?" pt denied being depressed, denied thoughts of harming self or others. Patient is fairly cooperative with questioning, thought process is better organized, pt has tendency to ramble. Still disorganized and labile but more manageable. pt tolerates meds well, no side effects observed or reported, AIMS 0, no EPS. pt is on two antipsychotic medications due to severity of pt's symtpoms. Geodon+ Thorazine. Diagnostic Results: Bipolar Disorder NOS Anxiety Disorder Medication Change: No Medical Record Reviewed: Yes Consults ordered or reviewed: see HPI Mental Status Examination - Cognitive Function Orientation: Person, Place, Situation, Time Memory: Intact Attention: WNL Concentration: Poor Association: Loose Fund of Knowledge: WNL - Mood Mood: Depressed ("tired, I didn't sleep well"), Anxious - Affect Affect: Blunted - Speech Speech: Loud, Pressured - Formal Thought Process Formal Thought Process: Other (scattered, repetitive and difficult to follow at times) - Suicidal Ideation Suicidal Ideation: No - Homicidal Ideation Homicidal Ideation: No Goal/Treatment Plan - Goal/Treatment Plan Need for Continued Stay: Remain at risks for inpatient hospitalization, Discharge may exacerbated symptoms, Severe functional impairment Progress Toward Problem(s) and Goals/Treatment Plan: Milieu/structure/supportive therapy Medical consult appreciated, see medical team note for more detailed info SW consultation for discharge plan and social issues Med management Jose and Елена interiano for anxiety Family involvement Follow up on labs medical consults appreciated Will monitor closely Pt was educated about risk/benefits and alternatives of medications, coping strategies (safety plan, suicide prevention), relapse prevention, importance of follow up with psychiatrist and therapist, stay away from drugs/alcohol/smoking Estimated Date of D/C: 10/03/17 (will d/w )
--- NOTE | 2017-09-27 19:56 | PN ---
DATE: ENDOCRINOLOGY FOLLOWUP NOTE LOCATION: Room 513. SUBJECTIVE: This is a 57-year-old female, admitted with generalized anxiety and major depression, and is now being followed closely at the psychiatric unit and also for metabolic management as given and noted. Her glucose levels have ranged from 153 to 155 and 165 mg/dL. The latest chemistry showed a BUN of 54, sodium 140, potassium 3.9, chloride 97, CO2 of 34, glucose 110, and creatinine 1.1. Her calcium level is 11.7. ASSESSMENT: This is a 57-year-old female with uncontrolled and decompensated type 2 insulin-requiring diabetes, presenting here with generalized anxiety and major depression and is now being followed closely for metabolic management. Her glycemic levels are fluctuating but much improved at this time and the glucose levels have ranged from 153 to 155 and 163 mg/dL. So at this time, we will continue the same premixed insulin regimen to allow for dose equilibration and keep her on the Humulin 70/30 given as 32 units a.c. breakfast and 24 units a.c. dinner as ordered. We will titrate incrementally as indicated to optimize metabolic control. We will follow and advise accordingly. Swetha Lowe MD
[2017-09-27] MEDS: MELATONIN 3 MG PO SCH (22:04)
--- NOTE | 2017-09-28 08:04 | CP.PCM.CON ---
<Opal Covington - Last Filed: 09/28/17 13:18> History of Present Illness - History of Present Illness History of Present Illness: 57 y/o diabetic female seen at bedside with complaints of painful thickened elongated toenails x 5 to left foot and painful callus to left 5th toe. Pt says she is unable to cut the thick nails herself. She denies tingling, numbness or burning in the feet. Admits to having her diabetes under control and denies any history of foot ulcerations or infections. Denies F/C/N/V/CP/SOB Review of Systems - Review of Systems All systems: reviewed and no additional remarkable complaints except (per HPI) Past Patient History - Past Social History Smoking Status: n - CARDIAC Hx Cardiac Disorders: Yes Hx Hypertension: Yes - PULMONARY Hx Tuberculosis: No - NEUROLOGICAL HX Cerebrovascular Accident: No - HEENT Hx Cataracts: Yes - RENAL Hx Chronic Kidney Disease: No - ENDOCRINE/METABOLIC Hx Diabetes Mellitus Type 2: Yes - HEMATOLOGICAL/ONCOLOGICAL Hx Blood Disorders: No Hx Cancer: No Hx Human Immunodeficiency Virus (HIV): No - MUSCULOSKELETAL/RHEUMATOLOGICAL Hx Musculoskeletal Disorders: No - GENITOURINARY/GYNECOLOGICAL Hx Sexually Transmitted Disorders: No - PSYCHIATRIC Hx Substance Use: No - SURGICAL HISTORY Hx Surgeries: Yes Hx Cataract Extraction: Yes Hx Section: Yes - ANESTHESIA Hx Anesthesia: Yes Hx Anesthesia Reactions: No Meds Allergies/Adverse Reactions: Allergies Allergy/AdvReac Type Severity Reaction Status Date / Time diphenhydramine Allergy ITCHING Verified 09/28/17 23:22 [From Bensuzyl] - Medications Medications: Current Medications Acetaminophen (Tylenol 325mg Tab) 650 mg PO Q4 PRN PRN Reason: Pain, moderate (4-7) Last Admin: 09/28/17 00:34 Dose: 650 mg Al Hydrox/Mg Hydrox/Simethicone (Maalox Plus 30 Ml) 30 ml PO DAILY PRN PRN Reason: Upset Stomach Chlorpromazine (Thorazine) 25 mg PO AMHS SHAUNA PRN Reason: Protocol Last Admin: 09/27/17 22:04 Dose: 25 mg Clonazepam (Klonopin) 1 mg PO QID SHAUNA PRN Reason: Protocol Last Admin: 09/27/17 22:04 Dose: 1 mg Furosemide (Lasix) 40 mg PO DAILY SHAUNA Last Admin: 09/27/17 13:00 Dose: 40 mg Gabapentin (Neurontin) 200 mg PO TID [facility] PRN Reason: Protocol Last Admin: 09/27/17 17:15 Dose: 200 mg Home Med (Home Med) 5 unit PO HS [facility] Last Admin: 09/27/17 22:04 Dose: 5 unit Home Med (Home Med) 1 unit PO TID [facility] Last Admin: 09/27/17 17:16 Dose: 1 unit Insulin Human Lispro (Humalog Low) 0 units SC ACHS [facility] PRN Reason: Protocol Last Admin: 09/27/17 22:30 Dose: Not Given Magnesium Hydroxide (Milk Of Magnesia) 30 ml PO DAILY PRN PRN Reason: Constipation Last Admin: 09/26/17 09:34 Dose: 30 ml Magnesium Oxide (Mag-Ox) 400 mg PO DAILY [facility] Last Admin: 09/27/17 13:02 Dose: 400 mg Metolazone (Zaroxolyn) 2.5 mg PO DAILY [facility] Last Admin: 09/25/17 08:33 Dose: 2.5 mg Pantoprazole Sodium (Protonix Ec Tab) 40 mg PO DAILY [facility] Last Admin: 09/27/17 13:01 Dose: 40 mg Pregabalin (Lyrica) 50 mg PO TID [facility] Last Admin: 09/27/17 17:16 Dose: 50 mg Sennosides (Senokot Tab) 8.6 mg PO DAILY [facility] Last Admin: 09/27/17 13:02 Dose: 8.6 mg Ziprasidone (Geodon Cap) 60 mg PO BID [facility] PRN Reason: Protocol Last Admin: 09/27/17 17:16 Dose: 60 mg Physical Exam - Constitutional Appears: Well, Non-toxic, No Acute Distress - Extremities Exam Additional comments: Lower extremity exam: Vasc: DP/PT pulses palpable 2/4. Temp gradient warm to cool. CFT < 3 sec to all digits. No pedal edema is noted. Derm: Thickened dystrophic elongated toenails x 5 to left foot. Subungual debris noted to B/L hallucal toenails. Hyperkeratotic lesion noted to lateral aspect of left 5th digit lateral to nail bed. No open lesions, no erythema, no ecchymosis. Neuro: Protective sensation grossly intact Ortho: Tenderness to palpation of left foot toenails x 5. Tenderness to palpation of left 5th digit at dorsolateral callus. No gross biomechanical deformities noted - Neurological Exam Neurological exam: Alert, Oriented x3 - Psychiatric Exam Psychiatric exam: Normal Affect, Normal Mood Results - Vital Signs Recent Vital Signs: Last Vital Signs Temp 97.5 F L 09/28/17 07:32 Pulse 58 L 09/28/17 07:32 Resp 20 09/28/17 07:32 BP 129/52 L 09/28/17 07:32 Pulse Ox 95 09/25/17 06:58 - Labs Result Diagrams: 09/23/17 06:45 09/26/17 08:10 Labs: Laboratory Results - last 24 hr 09/27/17 09/27/17 09/27/17 11:54 16:23 21:52 POC Glucose (mg/dL) 155 H 227 H 165 H 09/28/17 07:40 POC Glucose (mg/dL) 111 H Assessment & Plan - Assessment and Plan (Free Text) Assessment: 57 y/o diabetic female with painful elongated thickened toenails x 5 Plan: Pt seen and evaluated at bedside Discussed with attending Dr. Bahena Aseptic debridement of toenails x5 with sterile nippers Aseptic excisional debridement of hyperkeratotic lesion on left 5th digit down to healthy skin with #15 blade Pt tolerated procedure without incident Podiatry to sign off at this time Please re consult again as needed Thank you for allowing us to participate in patient care <Kamla Bahena - Last Filed: 10/01/17 16:18> Meds - Medications Medications: Current Medications Acetaminophen (Tylenol 325mg Tab) 650 mg PO Q4 PRN PRN Reason: Pain, moderate (4-7) Last Admin: 10/01/17 04:33 Dose: 650 mg Al Hydrox/Mg Hydrox/Simethicone (Maalox Plus 30 Ml) 30 ml PO DAILY PRN PRN Reason: Upset Stomach Chlorpromazine (Thorazine) 25 mg PO AMHS SHAUNA PRN Reason: Protocol Last Admin: 10/01/17 09:16 Dose: 25 mg Clonazepam (Klonopin) 1 mg PO QID SHAUNA PRN Reason: Protocol Last Admin: 10/01/17 13:04 Dose: 1 mg Gabapentin (Neurontin) 300 mg PO TID SHAUNA PRN Reason: Protocol Last Admin: 10/01/17 13:13 Dose: 300 mg Home Med (Home Med) 1 unit PO TID [facility] Last Admin: 10/01/17 13:03 Dose: 1 unit Home Med (Home Med) 5 unit PO 1999 [facility] Last Admin: 09/30/17 21:21 Dose: 5 unit Insulin Human Lispro (Humalog Low) 0 units SC ACHS [facility] PRN Reason: Protocol Last Admin: 10/01/17 13:05 Dose: 1 units [place] Citrate ([place] Carbonate) 4 meq PO BID [facility] Last Admin: 10/01/17 09:12 Dose: 4 meq Magnesium Hydroxide (Milk Of Magnesia) 30 ml PO DAILY PRN PRN Reason: Constipation Last Admin: 09/29/17 20:14 Dose: 30 ml Magnesium Oxide (Mag-Ox) 400 mg PO DAILY [facility] Last Admin: 10/01/17 09:09 Dose: 400 mg Metolazone (Zaroxolyn) 2.5 mg PO DAILY [facility] Last Admin: 09/25/17 08:33 Dose: 2.5 mg Pantoprazole Sodium (Protonix Ec Tab) 40 mg PO DAILY [facility] Last Admin: 10/01/17 09:11 Dose: 40 mg Pregabalin (Lyrica) 50 mg PO TID [facility] Last Admin: 10/01/17 13:04 Dose: 50 mg Senna/Docusate Sodium (Senokot S 50 Mg-8.6 Mg) 2 tab PO DAILY [facility] Last Admin: 10/01/17 09:11 Dose: 2 tab Ziprasidone (Geodon Cap) 60 mg PO BID [facility] PRN Reason: Protocol Last Admin: 10/01/17 09:12 Dose: 60 mg Results - Vital Signs Recent Vital Signs: Last Vital Signs Temp 98.1 F 10/01/17 07:35 Pulse 64 10/01/17 07:35 Resp 20 10/01/17 07:35 BP 108/48 L 10/01/17 07:35 Pulse Ox 95 09/25/17 06:58 - Labs Result Diagrams: 10/01/17 07:30 10/01/17 07:30 Labs: Laboratory Results - last 24 hr 09/30/17 09/30/17 10/01/17 16:25 21:31 07:20 WBC RBC Hgb Hct MCV MCH MCHC RDW Plt Count MPV Gran % Lymph % (Auto) [place] % (Auto) Eos % (Auto) Baso % (Auto) Gran # Lymph # [place] # Eos # Baso # Sodium Potassium Chloride Carbon Dioxide Anion Gap BUN Creatinine Est GFR ( Amer) Est GFR (Non-Af Amer) POC Glucose (mg/dL) 190 H 93 99 Random Glucose Calcium 10/01/17 10/01/17 10/01/17 07:30 07:30 11:17 WBC 6.0 RBC 4.29 Hgb 10.8 L Hct 36.0 MCV 83.9 MCH 25.2 MCHC 30.0 L RDW 15.3 H Plt Count 126 MPV 12.0 H Gran % 55.4 Lymph % (Auto) 32.4 [place] % (Auto) 6.7 H Eos % (Auto) 5.0 Baso % (Auto) 0.5 Gran # 3.29 Lymph # 1.9 [place] # 0.4 Eos # 0.3 Baso # 0.03 Sodium 140 Potassium 4.3 Chloride 103 Carbon Dioxide 27 Anion Gap 14 BUN 34 H Creatinine 1.1 Est GFR ( Amer) > 60 Est GFR (Non-Af Amer) 52 POC Glucose (mg/dL) 167 H Random Glucose 101 Calcium 11.6 H 10/01/17 15:31 WBC RBC Hgb Hct MCV MCH MCHC RDW Plt Count MPV Gran % Lymph % (Auto) [place] % (Auto) Eos % (Auto) Baso % (Auto) Gran # Lymph # [place] # Eos # Baso # Sodium Potassium Chloride Carbon Dioxide Anion Gap BUN Creatinine Est GFR ( Amer) Est GFR (Non-Af Amer) POC Glucose (mg/dL) 188 H Random Glucose Calcium Attending/Attestation - Attestation I have personally seen and examined this patient.: No I have fully participated in the care of the patient.: Yes I have reviewed all pertinent clinical information: Yes
[2017-09-28] MEDS: Insulin Lispro (humaLOG) LOW Coverage SC SCH ×4 (08:12→21:35)
[2017-09-28] MEDS: Pantoprazole 40 mg EC Tab PO SCH (08:17)
[2017-09-28] MEDS: Magnesium Oxide 400 mg Tab UD PO SCH (08:19)
[2017-09-28] MEDS: ADEMPAS 1.5 MG PO SCH ×3 (08:20→17:47)
[2017-09-28] MEDS: Insulin Human NPH/Reg 70/30 Vial(3 ml) SC SCH ×2 (09:25→17:01)
[2017-09-28] MEDS ORDERED: MELATONIN 3 MG PO SCH (18:04)
--- NOTE | 2017-09-28 19:07 | PN ---
DATE: 09/28/2017 SUBJECTIVE: The patient is in the psych unit. PHYSICAL EXAMINATION: VITAL SIGNS: Blood pressure 129/52, heart rate 58, respiratory rate 20, temperature 97.5. LABORATORY DATA: No new blood work. Parathyroid scan done yesterday shows no evidence of parathyroid adenoma. ASSESSMENT: 1. Acute kidney injury. 2. Noninsulin-dependent diabetes mellitus. 3. Hypercalcemia, workup consistent with hyperparathyroidism primary. PLAN: 1. Check CBC, BMP, magnesium, phosphorus tomorrow. 2. May need to consider starting Sensipar since there is no adenoma to be removed. Kandis Jones MD
[2017-09-28] MEDS: Home Med 1 UNIT PO SCH (20:58)
--- NOTE | 2017-09-28 23:46 | PN ---
DATE: Room 513, Psychiatry. SUBJECTIVE: This is a 57-year-old female admitted with major depression and generalized anxiety state with behavioral disturbances, currently being followed closely in the psychiatric unit and also followed closely for metabolic management. LABORATORY DATA: Her glycemic levels are much improved at this time, and the glucose values have ranged from 153 to 155 and 165 mg/dL. Her latest chemistry showed a BUN of 54, sodium 140, potassium 3.9, chloride 97, CO2 34, glucose 110 and creatinine 1.1. ASSESSMENT AND PLAN: So at this time, we will continue the same premixed insulin regimen to allow for dose equilibration and keep her on the Humulin 70/30 given as 34 units before breakfast and 24 units before dinner as ordered. We will continue the low-dose correction scale using Humalog insulin as given. We will follow and advise accordingly. Swetha Lowe MD
--- NOTE | 2017-09-29 00:39 | PN ---
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 She has a history of diabetes. PHYSICAL EXAMINATION: GENERAL: She is alert and oriented. VITAL SIGNS: Temperature is 97.5, blood pressure is 129/52, pulse is 58, and respiratory rate is 20. LUNGS: Clear. HEART: S1 and S2 rhythm. ABDOMEN: Soft. Positive bowel sounds. EXTREMITIES: Shows no evidence of edema. LABORATORY DATA: Reveals that her random blood sugar was 111. She is being followed by Endocrinology on an insulin regimen of coverage with regular insulin low dose and Humalog 70/30 and NPH regular 24 units in the evening and 34 units before breakfast. She states that she is feeling a bit better this morning. She is being followed by Nephrology for some mild renal insufficiency, and she was found to have an elevated parathyroid hormone with hypercalcemia. There is no evidence of adenoma on parathyroid scan. We will confer with Nephrology regarding management of the primary hyperparathyroidism. She has also discussed this with Endocrinology. We will continue as monitoring the patient. She has sleep apnea and pulmonary hypertension. Suyapa Benjamin MD
[2017-09-29] MEDS: Pantoprazole 40 mg EC Tab PO SCH (08:40)
[2017-09-29 08:42] LABS: CALCIUM 11.7 mg/dL (8.4-10.5)
[2017-09-29] MEDS: Docusate-Senna 50 mg-8.6 mg Tab PO SCH (08:42)
--- NOTE | 2017-09-29 08:48 | PN ---
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 The patient remains , not needing much affirmation and support, and lacking in insight. She is upset about her roommate who is wild, according to the patient and curses. She is talking about wanting to leave. No significant deformities that she is spending excess amounts of time around the nursing station, demanding attention and interfering with variability to function. A parathyroid nuclear scan did not show any adenoma. The patient was seen by Podiatry (Dr. Covington). Blood sugar earlier today was 111. Psychotropically, the patient is being maintained on Geodon 60 mg b.i.d., Klonopin 1 mg four times a day, Lyrica 50 mg t.i.d., and gabapentin 200 mg t.i.d., I will then increase to 200 mg four times a day. The patient is also on Thorazine 25 mg a.m. and at bedtime. Toni Joseph MD/ PhD
[2017-09-29] MEDS ORDERED: Lithium Carbonate Oral Sol 8 MEQ/5 ML PO SCH (10:00)
[2017-09-29] MEDS: ADEMPAS 1.5 MG PO SCH ×3 (10:52→17:37)
[2017-09-29] MEDS: Insulin Lispro (humaLOG) LOW Coverage SC SCH ×3 (10:53→17:40)
[2017-09-29] MEDS: Insulin Human NPH/Reg 70/30 Vial(3 ml) SC SCH ×2 (10:53→17:37)
[2017-09-29] MEDS: Magnesium Oxide 400 mg Tab UD PO SCH (10:54)
--- NOTE | 2017-09-29 13:05 | PN ---
DATE: SUBJECTIVE: A 57-year-old female on the Psychiatry unit, nursing staff relates that there were no particular problems during the night. PHYSICAL EXAMINATION: GENERAL: She is actively participating at this time with other members on the unit in a game. There were no problems during the day either. She is alert and oriented x3. VITAL SIGNS: Temperature is 97.5, pulse is 58, blood pressure is 129/52, and respiratory rate is 20. LUNGS: Clear. HEART: S1 and S2 rhythm. ABDOMEN: Obese, soft and positive bowel sounds. EXTREMITIES: No evidence of edema. LABORATORY DATA: This morning, she has a sodium of 141,potassium of 4.1, chloride of 102, the BUN is 45, and creatinine is 1.3. The blood sugar 185 and her calcium is 11.7. ASSESSMENT AND PLAN: 1. 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 Toni Joseph. She will be initiated on lithium. This has been discussed with both Renal and Endocrinology. 2. She will continue on her Geodon 60 mg twice a day, her Klonopin 1 mg four times a day, ad her Thorazine 25 mg twice a day. 3. She has elevated calcium and elevated parathyroid hormone. Endocrine recommends conservative management at this time. The sestamibi scan is negative for adenoma. 4. She has pulmonary hypertension. 5. She has sleep apnea and uses a continuous positive airway pressure at night. 6. She has insulin dependent diabetes. She is on insulin NPH 70/30 with a sliding insulin scale and a diabetic diet. She is on Zaroxolyn 2.5 mg daily, Lasix 40 mg daily, and Adempas three times a day for pulmonary hypertension. She will continue her at a regimen and her melatonin at bedtime. We will continue to follow her blood sugars closely. Suyapa Benjamin MD
[2017-09-29] MEDS: Lithium Carbonate Oral Sol 8 MEQ/5 ML PO SCH (18:01)
[2017-09-29] MEDS: Magnesium Hydroxide Susp 30 ml UD PO PRN (20:14)
--- NOTE | 2017-09-29 20:35 | PN ---
DATE: 09/29/2017 SUBJECTIVE: The patient is seen lying in bed. She is very agitated. She is shouting. She is coughing very loudly and very forcefully, I am unable to understand what she is saying. PHYSICAL EXAMINATION: GENERAL: Middle-aged lady lying in bed. VITAL SIGNS: Blood pressure 116/54, heart rate 60, respiratory rate 20, and temperature 97.5. HEENT: Normocephalic and atraumatic. Positive pallor. NECK: Supple. No JVD. LUNGS: Bilateral equal air entry. No rales. CARDIAC: S1 and S2. Regular rate and rhythm. No murmur. No rub. ABDOMEN: Obese, distended, soft, and nontender. Bowel sounds present. EXTREMITIES: No lower extremity edema. INTAKE AND OUTPUT: Not charted. LABORATORY DATA: Sodium 141, potassium 4.1, chloride 102, CO2 of 31, BUN 45, creatinine 1.3, glucose 185, calcium 11.7, phosphorus 3.4, and magnesium 2.0. Parathyroid scan negative for adenoma. CURRENT MEDICATIONS: Geodon, insulin, Klonopin, Lasix 40 p.o. daily, lithium b.i.d., Lyrica 50 t.i.d., aluminum hydroxide, magnesium oxide, milk of magnesia, and Neurontin. ASSESSMENT: 1. Aso-bwbbxka-nrejponpj diabetes mellitus. 2. Acute kidney injury, prerenal azotemia. 3. Hypernatremia/dehydration. 4. Hypercalcemia, primary hyperparathyroidism. 5. Depression. PLAN: 1. Hold Lasix since the patient is somewhat dehydrated. 2. The patient has been started on lithium for her schizophrenia. 3. We will defer management of primary hyperparathyroidism to Endocrinology. 4. Continue to monitor calcium. Kandis Jones MD
[2017-09-29] MEDS: Home Med 1 UNIT PO SCH (21:08)
--- NOTE | 2017-09-29 22:15 | PN ---
DATE: ENDOCRINOLOGY FOLLOWUP NOTE In room 513, psychiatry. SUBJECTIVE: This is a 57-year-old female with recent uncontrolled type 2 insulin-requiring diabetes now being followed closely for metabolic management. Her glycemic levels are fluctuating, but much improved at this time and the latest glucose levels have ranged from 183 to 253 mg/dL. Her latest chemistry showed a BUN of 45, sodium 141, potassium 4.1, chloride 102, CO2 of 31, glucose 185 and creatinine 1.3. So at this time, we will continue the same low-dose algorithm using Humalog insulin as given. We will also continue the same premixed insulin dose regimen to allow for dose equilibration and keep her on the Humulin 70/30 given as 34 units a.c. breakfast and 24 units a.c. dinner as ordered. Because of the persistent generalized anxiety and depression, there is a plan to start her on lithium therapy, which should be given as the benefits out weight the risks in terms of the clinical outcomes thereof. We will follow closely her electrolytes and thyroid studies with the initiation of his lithium accordingly. We will follow. Swetha Lowe MD
[2017-09-30] MEDS: MELATONIN 3 MG PO SCH ×2 (01:39→21:21)
[2017-09-30] MEDS: Insulin Lispro (humaLOG) LOW Coverage SC SCH ×5 (04:04→22:47)
[2017-09-30] MEDS: Magnesium Oxide 400 mg Tab UD PO SCH (08:38)
[2017-09-30] MEDS: Pantoprazole 40 mg EC Tab PO SCH (08:39)
[2017-09-30] MEDS: Docusate-Senna 50 mg-8.6 mg Tab PO SCH (08:39)
[2017-09-30] MEDS: Insulin Human NPH/Reg 70/30 Vial(3 ml) SC SCH ×2 (08:41→17:52)
[2017-09-30] MEDS: ADEMPAS 1.5 MG PO SCH ×3 (08:44→17:53)
--- NOTE | 2017-09-30 09:08 | PCM.PYCHPN ---
Psychiatric Progress Note - Psychiatric Progress Note Patient seen today, length of contact: 25 MIN Patient Chief Complaint: "much better with the lithium, my mood swings are much better" Problems Identified/Issues Discussed: I reviewed recent notes and met with patient at bedside. Patient is familiar to me from prior interviews last weekend. Patient still appears unkempt and oddly-related. She tells me that she is "much better with the lithium, my mood swings are much better". Oriented to month, year and location. Indicates she slept well. Patient is preoccupied with her relationship with her son and needs to be redirected from this topic as she does tend to ramble about it. Patient denies hallucinations or any new pain or discomfort. Staff notes indicate that patient has been anxious, attention seeking and labile. Can be calmed down with staff reassurance. There were no behavioral issues overnight. Diagnostic Results: Bipolar Disorder NOS Anxiety Disorder Medication Change: No Medical Record Reviewed: Yes Mental Status Examination - Cognitive Function Orientation: Person, Place, Situation, Time Memory: Intact Attention: WNL Concentration: Poor Association: Loose Fund of Knowledge: WNL - Mood Mood: Depressed ("much better with the lithium, my mood swings are much better") , Anxious - Affect Affect: Blunted - Speech Speech: Loud, Pressured - Formal Thought Process Formal Thought Process: Loosening of associations, Other (scattered, repetitive and difficult to follow at times) - Suicidal Ideation Suicidal Ideation: No - Homicidal Ideation Homicidal Ideation: No Goal/Treatment Plan - Goal/Treatment Plan Need for Continued Stay: Remain at risks for inpatient hospitalization, Discharge may exacerbated symptoms, Severe functional impairment Progress Toward Problem(s) and Goals/Treatment Plan: * c/w current tx and plan * Vitals reviewed and noted below: 09/28/17 09/28/17 09/28/17 07:32 08:17 16:00 Temperature 97.5 F L Pulse Rate 58 L 60 Respiratory 20 Rate Blood Pressure 129/52 L 129/52 L 128/52 L 09/29/17 09/29/17 08:40 16:00 Temperature Pulse Rate 85 Respiratory Rate Blood Pressure 116/54 L 119/58 L * Prior weekend labs noted below: Laboratory Results - last 24 hr 09/23/17 09/23/17 09/23/17 06:45 16:23 21:24 WBC 7.2 RBC 4.87 Hgb 12.7 D Hct 40.6 MCV 83.4 MCH 26.1 MCHC 31.3 RDW 14.8 H Plt Count 185 MPV 11.9 H Gran % 50.6 Lymph % (Auto) 36.8 H [place] % (Auto) 7.5 H Eos % (Auto) 4.4 Baso % (Auto) 0.7 Gran # 3.65 Lymph # 2.7 [place] # 0.5 Eos # 0.3 Baso # 0.05 POC Glucose (mg/dL) 195 H 256 H 09/24/17 07:59 WBC RBC Hgb Hct MCV MCH MCHC RDW Plt Count MPV Gran % Lymph % (Auto) [place] % (Auto) Eos % (Auto) Baso % (Auto) Gran # Lymph # [place] # Eos # Baso # POC Glucose (mg/dL) 166 H Estimated Date of D/C: 10/03/17 (will d/w )
[2017-09-30] MEDS: Lithium Carbonate Oral Sol 8 MEQ/5 ML PO SCH ×2 (10:32→17:49)
--- NOTE | 2017-09-30 12:22 | PN ---
DATE: ENDOCRINOLOGY FOLLOWUP NOTE LOCATION: In room 513, psychiatry. This is a 57-year-old female with recent uncontrolled type 2 insulin-requiring diabetes, now with improved metabolic profile on her current premixed insulin regimen as given. Her glucose levels have ranged from 128 to 141 mg/dL. Her latest chemistry showed a BUN of 45, sodium 141, potassium 4.1, chloride 102, CO2 of 31, glucose 185, and creatinine 1.3. So at this time, we will continue the same premixed insulin regimen to allow for dose equilibration and keep her on the Humulin 70/30 given as 34 units a.c. breakfast and 24 units a.c. dinner as ordered. We will continue also the low-dose correction scale using Humalog insulin as given. We will obtain serial chemistries and supplement accordingly as needed. She has been started on [place] therapy for closer management of major depressive disorder here in the psychiatric unit. We will follow closely her thyroid and electrolyte profile as indicated. Swetha Lowe MD
--- NOTE | 2017-09-30 20:06 | PN ---
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 She is being followed by Dr. Toni Joseph. PHYSICAL EXAMINATION GENERAL: She states that she had a good night last night. She does not offer for any specific problems at this time. VITAL SIGNS: Show a temperature of 97.7, her pulse is 85, her blood pressure is 134/63 and her respiratory rate is 16. LUNGS: Clear. HEART: S1 and S2 rhythm. ABDOMEN: Positive bowel sounds. EXTREMITIES: Shows no evidence of edema. LABORATORY DATA: Blood sugar this morning was reported as 128, follow up with 219. The patient is recently been initiated on [place] therapy. One must monitor her blood sugar closely. The initiation of this therapy by Dr. Joseph was reviewed and discussed with both Renal and Endocrinology, both of whom felt it right to initiate the therapy. She has a history of pulmonary hypertension, sleep apnea, recently been found to have hypoparathyroidism. Endocrinology recommends at this time, just monitor the patient's serum calcium and encourage the patient to drink. We will followup the patient's lab work and continue to follow the patient along with Dr. Joseph. Suyapa Benjamin MD
[2017-10-01 08:12] LABS: BASO # 0.03 K/mm3 (0.0-2.0); BASO % 0.5 % (0.0-3.0); EOS # 0.3 (0.0-0.7); GRAN # 3.29 (1.4-6.5); GRAN % 55.4 % (50.0-68.0); HEMOGLOBIN 10.8 g/dL (12.0-16.0); LYMPH # 1.9 (1.2-3.4); LYMPH % 32.4 % (22.0-35.0); MEAN CELL VOLUME 83.9 fl (80.0-105.0); MEAN CORPUSCULAR HEMOGLOBIN 25.2 pg (25.0-35.0); MONO # 0.4 (0.1-0.6); MONO % 6.7 % (1.0-6.0); RBC 4.29 10^6/uL (3.5-6.1); RED CELL DISTRIBUTION WIDTH 15.3 % (11.5-14.5)
[2017-10-01] MEDS: Insulin Lispro (humaLOG) LOW Coverage SC SCH ×5 (08:17→21:27)
[2017-10-01 08:58] LABS: BLOOD UREA NITROGEN 34 mg/dL (7-21); CALCIUM 11.6 mg/dL (8.4-10.5); GFR AFRICAN-AMERICAN > 60; GFR NON-AFRICAN AMERICAN 52
[2017-10-01] MEDS: Magnesium Oxide 400 mg Tab UD PO SCH (09:09)
[2017-10-01] MEDS: Pantoprazole 40 mg EC Tab PO SCH (09:11)
[2017-10-01] MEDS: Docusate-Senna 50 mg-8.6 mg Tab PO SCH (09:11)
[2017-10-01] MEDS: Lithium Carbonate Oral Sol 8 MEQ/5 ML PO SCH ×2 (09:12→18:56)
[2017-10-01] MEDS: Insulin Human NPH/Reg 70/30 Vial(3 ml) SC SCH ×2 (09:15→18:54)
--- NOTE | 2017-10-01 09:15 | PCM.PYCHPN ---
Psychiatric Progress Note - Psychiatric Progress Note Patient seen today, length of contact: 25 MIN Patient Chief Complaint: "much better with the lithium, I feel very good, not high" Problems Identified/Issues Discussed: I reviewed recent notes and met with patient in the day room. Patient is a little better groomed today. She tells me that she is "much better with the lithium, I feel very good, not high". Remains oriented to month, year and location. Indicates she slept well. Patient doesn't discuss her son this morning. She seems more focused though still can ramble if not redirected. Remains oddly related. Doesn't appear to be responding to any internal stimuli and she denies hallucinations. Staff notes indicate that patient can be anxious, attention seeking and intrusive at nurses station. Compliant with medications and visible on the unit. Participates in groups without any major behavioral issues. Diagnostic Results: Bipolar Disorder NOS Anxiety Disorder Medication Change: No Medical Record Reviewed: Yes Mental Status Examination - Cognitive Function Orientation: Person, Place, Situation, Time Memory: Intact Attention: WNL Concentration: Poor Association: Loose Fund of Knowledge: WNL - Mood Mood: Depressed ( "much better with the lithium, I feel very good, not high"), Anxious - Affect Affect: Blunted - Speech Speech: Loud, Pressured (much better) - Formal Thought Process Formal Thought Process: Loosening of associations (improving), Other (scattered , repetitive and difficult to follow at times) - Suicidal Ideation Suicidal Ideation: No - Homicidal Ideation Homicidal Ideation: No Goal/Treatment Plan - Goal/Treatment Plan Need for Continued Stay: Remain at risks for inpatient hospitalization, Discharge may exacerbated symptoms, Severe functional impairment Progress Toward Problem(s) and Goals/Treatment Plan: * c/w current tx and plan * Appreciate f/u by Dr. Benjamin and Dr. Lowe on 09/30/17~no new changes, plan to follow serial chemistries and adjust accordingly * Vitals reviewed and noted below: 10/01/17 07:35 Temperature 98.1 F Pulse Rate 64 Respiratory 20 Rate Blood Pressure 108/48 L * Current weekend labs noted below: Laboratory Results - last 24 hr 09/30/17 09/30/17 09/30/17 11:14 16:25 21:31 WBC RBC Hgb Hct MCV MCH MCHC RDW Plt Count MPV Gran % Lymph % (Auto) [place] % (Auto) Eos % (Auto) Baso % (Auto) Gran # Lymph # [place] # Eos # Baso # Sodium Potassium Chloride Carbon Dioxide Anion Gap BUN Creatinine Est GFR ( Amer) Est GFR (Non-Af Amer) POC Glucose (mg/dL) 219 H 190 H 93 Random Glucose Calcium 10/01/17 10/01/17 10/01/17 07:20 07:30 07:30 WBC 6.0 RBC 4.29 Hgb 10.8 L Hct 36.0 MCV 83.9 MCH 25.2 MCHC 30.0 L RDW 15.3 H Plt Count 126 MPV 12.0 H Gran % 55.4 Lymph % (Auto) 32.4 [place] % (Auto) 6.7 H Eos % (Auto) 5.0 Baso % (Auto) 0.5 Gran # 3.29 Lymph # 1.9 [place] # 0.4 Eos # 0.3 Baso # 0.03 Sodium 140 Potassium 4.3 Chloride 103 Carbon Dioxide 27 Anion Gap 14 BUN 34 H Creatinine 1.1 Est GFR ( Amer) > 60 Est GFR (Non-Af Amer) 52 POC Glucose (mg/dL) 99 Random Glucose 101 Calcium 11.6 H * Prior weekend labs noted below: Laboratory Results - last 24 hr 09/23/17 09/23/17 09/23/17 06:45 16:23 21:24 WBC 7.2 RBC 4.87 Hgb 12.7 D Hct 40.6 MCV 83.4 MCH 26.1 MCHC 31.3 RDW 14.8 H Plt Count 185 MPV 11.9 H Gran % 50.6 Lymph % (Auto) 36.8 H [place] % (Auto) 7.5 H Eos % (Auto) 4.4 Baso % (Auto) 0.7 Gran # 3.65 Lymph # 2.7 [place] # 0.5 Eos # 0.3 Baso # 0.05 POC Glucose (mg/dL) 195 H 256 H 09/24/17 07:59 WBC RBC Hgb Hct MCV MCH MCHC RDW Plt Count MPV Gran % Lymph % (Auto) [place] % (Auto) Eos % (Auto) Baso % (Auto) Gran # Lymph # [place] # Eos # Baso # POC Glucose (mg/dL) 166 H Estimated Date of D/C: 10/03/17 (will d/w )
--- NOTE | 2017-10-01 10:46 | PN ---
DATE: 09/30/2017 SUBJECTIVE: The patient is seen sitting in chair. She is much calmer today. She is awake, she is alert. PHYSICAL EXAMINATION: GENERAL: Obese middle-aged lady sitting in chair. VITAL SIGNS: Blood pressure 134/63, heart rate 70, respiratory rate 16, temperature 97.7. HEENT: Normocephalic, atraumatic. NECK: Supple, no JVD. LUNGS: Bilateral equal air entry, no rales. CARDIAC: S1, S2, regular rate and rhythm, no murmur, no rub. ABDOMEN: Obese, distended, soft, nontender, bowel sounds present. EXTREMITIES: 1+ pitting edema of the lower extremities. INTAKE AND OUTPUT: Not charted. LABORATORY DATA: No new labs. CURRENT MEDICATIONS: Geodon, Klonopin, lithium, Lyrica, Maalox, magnesium oxide, MOM, Neurontin, Protonix, Thorazine, Tylenol, and Zaroxolyn on hold. ASSESSMENT: 1. Bipolar disorder. 2. Non-insulin dependent diabetes mellitus. 3. Mild prerenal azotemia. 4. Hypernatremia. 5. Pulmonary hypertension. 6. Primary hyperparathyroidism with hypercalcemia. PLAN: 1. Continue to hold Lasix and Zaroxolyn. 2. Monitor labs. 3. Monitor calcium. 4. Conservative management for hyperparathyroidism as per Endocrinology. Kandis Jones MD
[2017-10-01] MEDS: ADEMPAS 1.5 MG PO SCH ×2 (13:03→18:53)
--- NOTE | 2017-10-01 15:25 | PN ---
DATE: SUBJECTIVE: A 57-year-old woman on the Psychiatry unit. This morning, she states that she had a good night sleeping. Nursing staff relates that there were no particular problems. PHYSICAL EXAMINATION: GENERAL: She is alert. VITAL SIGNS: Temperature is 98, pulse is 68, blood pressure is 108/48, respiratory rate is 20. NECK: Supple. LUNGS: Clear. HEART: S1 and S2 rhythm. ABDOMEN: Soft, scaphoid, positive bowel sounds. EXTREMITIES: No evidence of edema. LABORATORY DATA: The patient had a WBC of 6.0, RBC 4.29, hemoglobin 10.8, hematocrit 36, platelet count 126. Chemistry showed normal electrolytes. BUN is 34, creatinine is 1.1, calcium is 11.6. 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 She is also on Geodon. She has sleep apnea and pulmonary hypertension. She has non-insulin dependent diabetes. She has primary hyperparathyroidism. Endocrinology is monitoring her blood sugar and insulin regimen at this time, and no recommendations at this time are made regarding the hyperparathyroidism, and it is recommended by Endocrine to just monitor the labs at this point. Physical therapy evaluation has been requested. She will continue her supportive on the unit and continue her bowel regimen for constipation. Suyapa Benjamin MD
[2017-10-01] MEDS: MELATONIN 3 MG PO SCH (20:36)
--- NOTE | 2017-10-02 00:17 | PN ---
DATE: ENDO FOLLOWUP NOTE LOCATION: In psychiatry, room 513. SUBJECTIVE: This is a 57-year-old female admitted for further psychiatric management of major depression and generalized anxiety and is now also being followed closely for metabolic management. Her glycemic levels are fluctuating but much improved at this time and have ranged from 93-99 and 190 mg/dL. Her latest chemistry showed a BUN of 34, sodium 140, potassium 4.3, chloride 103, CO2 of 27, glucose 101 and creatinine 1.1. PLAN: So, at this time, we will continue the same premixed insulin regimen as given with Humulin 70/30 given as 34 units before breakfast and 24 units before dinner as ordered. We will also continue the low-dose correction scale using Humalog insulin as given. We will follow and advise accordingly. Swetha Lowe MD
--- NOTE | 2017-10-02 08:40 | PN ---
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 Today, she is loud, with occasional pressured speech, wanting me to take her home for the and exhibiting poor voice modulation, poor self-control, and poor insight. I have met with her sister and niece yesterday who again reviewed the patient's plight. After due consideration and looking at the benefits versus risks, we have decided to once again put the patient on lithium, being aware that it is potentially nephrotoxic, that the patient does have impaired renal function and has diabetes mellitus. I have reviewed the situation with Dr. Benjamin and internally with Dr. Lowe. The patient is being considered for the initiation of Sensipar since she does not have any parathyroid adenoma. The patient is also receiving Geodon 60 mg b.i.d., Klonopin 1 mg four times a day, and Thorazine 25 mg b.i.d. A family meeting is pending for 11/30/2017. OBJECTIVE: VITAL SIGNS: Blood pressure 116/54, pulse 60, temperature 97.5, and respiratory rate 20. Her low blood pressure is mitigating against increasing her Thorazine at this time. Toni Joseph MD/ PhD
[2017-10-02] MEDS: ADEMPAS 1.5 MG PO SCH ×3 (09:28→17:49)
[2017-10-02] MEDS: Pantoprazole 40 mg EC Tab PO SCH (09:28)
[2017-10-02] MEDS: Magnesium Oxide 400 mg Tab UD PO SCH (09:28)
[2017-10-02] MEDS: Insulin Lispro (humaLOG) LOW Coverage SC SCH ×4 (09:28→21:23)
[2017-10-02] MEDS: Insulin Human NPH/Reg 70/30 Vial(3 ml) SC SCH ×2 (09:31→17:49)
[2017-10-02] MEDS: Docusate-Senna 50 mg-8.6 mg Tab PO SCH (09:38)
[2017-10-02] MEDS: Lithium Carbonate Oral Sol 8 MEQ/5 ML PO SCH ×2 (09:47→17:48)
--- NOTE | 2017-10-02 18:50 | PCM.PYCHPN ---
Psychiatric Progress Note - Psychiatric Progress Note Patient seen today, length of contact: 25 MIN Patient Chief Complaint: depression Problems Identified/Issues Discussed: Met with patient, , brother in treatment team Reviewed patient's impulsivity, lability, pressured speech at times, inability to listen to others, impact of patient's behavior on others. Reviewed potential benefits of engaging in both individual and family therapy for patient and family Possible enrollment in the day program upon stabilization and discharge from hospital also discussed. Medical Problems: Patient's medical status discussed with Dr. Benjamin. Difficulty of managing patient because of her diabetes, pulmonary hypertension, prerenal azotemia also discussed Family concerned about withholding of Lasix which is being attributed for the swelling of her ankles. Nephrology and endocrine input reviewed and appreciated. Will check serum lithium level. For now we'll hold off reinitiating Lasix oh or other diuretics until such time as is medically indicated. Diagnostic Results: Reviewed. B he went elevated. Creatinine within normal limits. DSM 5 Symptoms Update: Patient alert, oriented, speech sometimes pressured, has difficulty listening to others, at times exhibits paranoid ideation, insight considered to be marginal. The patient appears to be "manipulative" in trying to get her perceived needs met. Medication Change: No Medical Record Reviewed: Yes Consults ordered or reviewed: Reviewed Mental Status Examination - Cognitive Function Orientation: Person, Place, Situation, Time Memory: Intact Attention: WNL Concentration: Poor Association: WNL Fund of Knowledge: WNL Decription of patient's judgement and insights: Marginal - Mood Mood: Depressed ( "much better with the lithium, I feel very good, not high"), Anxious - Affect Affect: Blunted - Speech Speech: Loud, Pressured (much better) - Formal Thought Process Formal Thought Process: Paranoia, Other (scattered, repetitive and difficult to follow at times) - Suicidal Ideation Suicidal Ideation: No - Homicidal Ideation Homicidal Ideation: No Goal/Treatment Plan - Goal/Treatment Plan Need for Continued Stay: Remain at risks for inpatient hospitalization, Discharge may exacerbated symptoms, Severe functional impairment Progress Toward Problem(s) and Goals/Treatment Plan: Have met with family. Patient has been restarted on lithium some improvement even at low lithium levels. Serum lithium level pending Patient had been taken off of lithium at recommendation of clinicians at [facility] where patient had been previously Working on stabilization both of patient's individual manic episode and on family dynamics that includes a mutual recrimination and inability of patient to appreciate the efforts being made on her behalf. seems overwhelmed. Estimated Date of D/C: 10/03/17 (will d/w ) - Smoking Cessation Smoking Cessation Initiated: No Reason for not providing: Nonsmoker
--- NOTE | 2017-10-02 19:52 | PN ---
DATE: 10/02/2017 SUBJECTIVE: The patient is seen sitting in chair in the dining [place]. She is eating lunch. She complains of lower extremity edema. She seems very calm. PHYSICAL EXAMINATION: GENERAL: Obese, middle-aged lady, sitting in chair. VITAL SIGNS: Blood pressure 108/48, heart rate 64, respiratory rate 20, and temperature 98. HEENT: Normocephalic, atraumatic, positive pallor. NECK: Supple, no JVD. LUNGS: Bilateral equal air entry, bilateral equal expansion, no rales. CARDIAC: S1 and S2 regular rate and rhythm, positive murmur, no rub. ABDOMEN: Obese, distended, soft, nontender, bowel sounds present. EXTREMITIES: 1+ pitting edema of the lower extremities. INTAKE AND OUTPUT: Not charted. LABORATORY DATA: WBC 6, hemoglobin 10.8, hematocrit 36, and platelets 126. Sodium 140, potassium 4.3, chloride 103, CO2 of 27, BUN 34, creatinine 1.1, glucose 101, calcium 11.6. CURRENT MEDICATIONS: Geodon, insulin, Klonopin, lithium, Lyrica, Maalox, mag oxide, milk of magnesia, Neurontin, Protonix, Colace, Thorazine, Tylenol, Zaroxolyn on hold. ASSESSMENT: 1. Acute kidney injury, prerenal azotemia, resolved. 2. History of pulmonary hypertension ?. 3. Qen-fuwksfr-hdhzlvuwx diabetes mellitus. 4. Hypercalcemia/primary hyperparathyroidism. 5. Schizophrenia, now on lithium. 6. Anemia. PLAN: 1. Continue to hold Lasix since interacts with lithium. 2. Continue pressure stockings. 3. Monitor electrolytes two to three times per week. 4. Follow up with Cardiology. Kandis Jones MD
[2017-10-02] MEDS: MELATONIN 3 MG PO SCH (21:21)
--- NOTE | 2017-10-03 02:29 | PN ---
DATE: ENDOCRINOLOGY FOLLOWUP NOTE LOCATION: Room 513. SUBJECTIVE: This is a 57-year-old female with generalized anxiety and major depression, currently being followed closely in the Psychiatric Unit and is also being followed for metabolic management. Her glycemic levels are fluctuating, but much improved at this time and the glucose levels today have ranged from 186 to 188 and 169 mg/dL. Her latest chemistry showed a BUN of 34, sodium 140, potassium 4.3, chloride 103, CO2 27, glucose 101 and creatinine 1.1. Her calcium level is 11.6 and this is related to underlying primary hyperparathyroidism. So at this time, we will continue the same premixed insulin regimen with Humulin 70/30 given as 34 units a.c. breakfast and 24 units a.c. dinner as ordered. We will also continue the low-dose correction scale using Humalog insulin as given. We will titrate incrementally as indicated to optimize metabolic control. We will obtain serial chemistries and supplement accordingly needed. We will follow this. Swetha Lowe MD
--- NOTE | 2017-10-03 08:34 | PN ---
DATE: 10/02/2017 SUBJECTIVE: The patient states that seems to be some swelling of her legs yesterday, concerned about not receiving her Lasix therapy, but they have been placed on hold by Nephrology because of some prerenal azotemia. PHYSICAL EXAMINATION: VITAL SIGNS: Her temperature is 98, her blood pressure is 108/48, pulse is 64, and respiratory rate is 20. NECK: Supple. LUNGS: Clear. HEART: S1 and S2 rhythm. ABDOMEN: Soft with positive bowel sounds. EXTREMITIES: Shows no evidence of edema. LABORATORY DATA: Shows random blood sugar of 186. ASSESSMENT AND PLAN: The patient has been placed on lithium by Psychiatry, so they referred for venous Doppler of the lower extremities. She has sleep apnea, pulmonary hypertension, insulin-dependent diabetes, and hyperparathyroidism. We will review with renal resumption of her diuretics and discussed this with Dr. Joseph and venous Doppler of the lower extremities will be requested. Suyapa Benjamin MD
[2017-10-03] MEDS: Insulin Lispro (humaLOG) LOW Coverage SC SCH ×4 (08:57→22:14)
[2017-10-03] MEDS: Docusate-Senna 50 mg-8.6 mg Tab PO SCH (09:00)
[2017-10-03] MEDS: ADEMPAS 1.5 MG PO SCH ×3 (09:05→17:51)
[2017-10-03] MEDS: Pantoprazole 40 mg EC Tab PO SCH (09:06)
[2017-10-03] MEDS: Magnesium Oxide 400 mg Tab UD PO SCH (09:06)
[2017-10-03] MEDS: Insulin Human NPH/Reg 70/30 Vial(3 ml) SC SCH ×2 (09:08→17:53)
[2017-10-03] MEDS: Lithium Carbonate Oral Sol 8 MEQ/5 ML PO SCH ×2 (09:13→17:54)
--- NOTE | 2017-10-03 09:54 | US ---
HISTORY: Leg pain and swelling. Evaluate for DVT PHYSICIAN(S): Uche Holliday MD. TECHNIQUE: Duplex sonography and color-flow Doppler with graded compression were used to evaluate the deep venous systems of both lower extremities. FINDINGS: The visualized deep venous systems of both lower extremities are sonographically normal and compressible. Normal wave forms and augmentation are seen. There is no sonographic evidence for deep venous thrombosis in the visualized segments of both lower extremities. IMPRESSION: No sonographic evidence for deep venous thrombosis in the visualized segments of both lower extremities.
--- NOTE | 2017-10-03 13:15 | PN ---
DATE: SUBJECTIVE: The patient is currently seen sitting at the side of her bed in her room on the psychiatry floor. She is wearing support stockings and has left lower extremity edema. She appears to be comfortable. She is asking me when she can go home. MEDICATIONS: Medication list reviewed. The patient is currently on Geodon, Adempas, melatonin, sliding scale insulin, Klonopin, lithium, Lyrica, Maalox, magnesium oxide, milk of magnesia, Neurontin, Protonix, Senokot, Thorazine, Tylenol p.r.n. and Zaroxolyn is on hold. PHYSICAL EXAMINATION: VITAL SIGNS: Blood pressure of 139/68, temperature of 97.6, and respiratory rate of 19 with a pulse of 73. HEENT: Exam shows her to be normocephalic and atraumatic. Conjunctivae are pink. Sclerae are nonicteric. NECK: Supple. No neck vein distention. CHEST: Clear to auscultation and percussion. No rales and no rhonchi or wheezing. CARDIOVASCULAR: Shows a regular rate and rhythm without audible murmurs, rubs or gallops. GASTROINTESTINAL: Abdomen is obese. Minimal distention. Soft and nontender. No masses. No rebound or guarding. EXTREMITIES: Showed trace nonpitting lower extremity edema. She has compression stockings on both legs. LABORATORY DATA AND IMAGING STUDIES: Last CBC was done 2 days ago, white blood cell count of 6.0 and hemoglobin of 10.8 with a platelet count of 126,000. Chemistries done 2 days ago showed normal electrolytes. Sodium was 140, BUN is 34 down from a high of 51 and creatinine is 1.1 down from a high of 1.5. Calcium level was 11.6. The patient does have a history of primary hyperparathyroidism. ASSESSMENT: 1. Mild prerenal azotemia. This is in the setting of diuretic therapy. She is currently off all diuretics. Creatinine is back to baseline at 1.1. 2. History of pulmonary hypertension as per Dr. Benjamin. 3. History of non-insulin dependent diabetes mellitus. The patient remains on sliding scale insulin. Glucose control has been acceptable. 4. History of mild hypercalcemia or primary hyperparathyroidism. Calcium was 11.6. We will repeat these levels tomorrow. 5. History of schizophrenia, on lithium therapy as per Dr. Joseph. 6. History of mild anemia. PLAN 1. Continue to monitor labs on a routine basis. 2. Encourage the patient to elevate her legs and to continue wearing compression stockings to minimize her possibility of developing further edema. 3. Follow up with Dr. Josehp for transition over to outpatient medication for her schizophrenia and anxiety disorder. 4. The patient states that she will be going home for the weekend. Fletcher Andujar MD
[2017-10-03] MEDS: MELATONIN 3 MG PO SCH (21:00)
--- NOTE | 2017-10-03 22:47 | PN ---
DATE: SUBJECTIVE: The patient is sitting comfortably in the dayroom. PHYSICAL EXAMINATION: VITAL SIGNS: Temperature is 97.6, pulse is 73, respirations are 19, blood pressure is 139/68. NECK: Supple. LUNGS: Clear. HEART: S1 and S2 rhythm. ABDOMEN: Soft. EXTREMITIES: No evidence of edema. LABORATORY DATA: Venous Doppler done yesterday showed negative evidence of DVT. Her fasting blood sugar this morning was 60. 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 She has pulmonary hypertension, sleep apnea, [id number] diabetes. She has chronic kidney disease, peripheral neuropathy. She has been placed on lithium by Psychiatry and discussion is being held with the family regarding the use of diuretic Lasix in the setting of using the lithium. Endocrinology has okayed the use of the lithium given her diabetes with . We will closely monitor her sugar. We will await input from Psychiatry regarding the use of her diuretic with lithium. Suyapa Benjamin MD
--- NOTE | 2017-10-03 23:40 | PN ---
DATE: Room 513, Psychiatry. HISTORY: This is a 57-year-old female with recent uncontrolled type 2 insulin-requiring diabetes, now being followed closely at the psychiatric unit for management of both generalized anxiety and major depression. Her glycemic levels are fluctuating, but much improved at this time and the latest glucose levels have ranged from 118 to 124 and 140 mg/dL. Her latest chemistry showed a BUN of 34, sodium 140, potassium 4.3, chloride 103, CO2 27, glucose 101 and creatinine 1.1. Her latest calcium level is 11.6 mg/dL. So at this time, we will continue the same premixed insulin regimen to allow for dose equilibration and keep her on the Humulin 70/30, given as 34 units a.c. breakfast and 24 units a.c. dinner as ordered. We will continue the low-dose correction scale using Humalog insulin as given. We will titrate incrementally as indicated to optimize metabolic control. We will follow. Swetha Lowe MD
--- NOTE | 2017-10-04 01:17 | PN ---
DATE: SUBJECTIVE: The patient is a 57-year-old white female with a mood disorder and organic personality disorder who also has multiple medical problems including diabetes mellitus, pulmonary hypertension, sleep apnea, who has been treated psychiatrically for mood instability. Her condition has been made more difficult to modulate because of her multiple medical problems, including limitation of the use of lithium which has been helpful to her in the past because of her renal status. She has claimed that her legs are swollen, and she has been asking for Lasix, but the induration appears not to be due to water accumulation; this is observation based on my discussion with Dr. Benjamin. She had been seen by Nephrology earlier this day with her mild prerenal azotemia being monitored. This is in the setting of diuretic therapy, although she is currently off of all diuretics. Her creatinine is back to baseline at 1.1. She is currently receiving Geodon, Adempas, melatonin, sliding scale insulin, Klonopin, low-dose lithium, Lyrica, Maalox, magnesium oxide, MOM, Neurontin, Protonix, Senokot, Thorazine. Zaroxolyn is on hold. The patient is anxious to go home. Nursing notes that she is alert and oriented to three spheres, but still labile but more directable than she had been before and is making attempts at following directions and listening to others. She does not appear to be psychotic or suicidal or homicidal. Blood pressure 131/62, pulse 59, temperature 97.6, respiratory rate 19. Blood glucose earlier today was initially low at 60 at 1610, and subsequently at 1658 of 97. The patient represents a therapeutic challenge with her medical condition regarding treatment options with regard to control of her hypomania. Toni Joseph MD/ PhD
[2017-10-04 08:00] LABS: HEMOGLOBIN 10.8 g/dL (12.0-16.0); MEAN CELL VOLUME 84.2 fl (80.0-105.0); MEAN CORPUSCULAR HEMOGLOBIN 25.5 pg (25.0-35.0); MEAN CORPUSCULAR HGB CONC 30.3 g/dl (31.0-37.0); MEAN PLATELET VOLUME 11.9 fl (7.0-11.0); RBC 4.23 10^6/uL (3.5-6.1); RED CELL DISTRIBUTION WIDTH 15.6 % (11.5-14.5); WHITE BLOOD COUNT 5.9 10^3/ul (4.5-11.0)
[2017-10-04] MEDS: Pantoprazole 40 mg EC Tab PO SCH (08:15)
[2017-10-04] MEDS: Docusate-Senna 50 mg-8.6 mg Tab PO SCH (08:15)
[2017-10-04] MEDS: Magnesium Oxide 400 mg Tab UD PO SCH (08:15)
[2017-10-04] MEDS: Lithium Carbonate Oral Sol 8 MEQ/5 ML PO SCH ×2 (08:20→17:12)
[2017-10-04] MEDS: ADEMPAS 1.5 MG PO SCH ×3 (08:29→17:13)
[2017-10-04] MEDS: Insulin Human NPH/Reg 70/30 Vial(3 ml) SC SCH ×2 (08:30→17:12)
[2017-10-04 08:38] LABS: ALB/GLOB RATIO 1.2 (1.1-1.8); CALCIUM 11.7 mg/dL (8.4-10.5); MAGNESIUM 1.9 mg/dL (1.7-2.2)
[2017-10-04] MEDS: Insulin Lispro (humaLOG) LOW Coverage SC SCH ×4 (09:28→21:41)
--- NOTE | 2017-10-04 17:55 | PN ---
DATE: ENDOCRINOLOGY FOLLOWUP NOTE LOCATION: Room 513, Psychiatry. SUBJECTIVE: This is a 57-year-old female with recent uncontrolled type 2 insulin-requiring diabetes, now with supervening hypoglycemic fluctuations as noted thereof. Her glucose levels overnight ranged from 60-86 and 97 mg/dL. LABORATORY DATA: Her latest chemistry showed a BUN of 34, sodium 140, potassium 4.3, chloride 103, CO2 of 27, glucose 101 and creatinine 1.1. PLAN: So at this time, we will modify once again and lower her premixed insulin regimen with Humulin 70/30 given as 30 units before breakfast and 20 units before dinner to start today. We will continue the low-dose Humalog insulin given before meals and at bedtime as ordered. We will obtain serial chemistries and supplement accordingly as needed. We will follow with you. Swetha Lowe MD
--- NOTE | 2017-10-04 18:48 | PN ---
DATE: 10/04/2017 SUBJECTIVE: The patient is on the psychiatry unit, being followed by Dr. Joseph. PHYSICAL EXAMINATION: VITAL SIGNS: She has a temp of 98.6, blood pressure is 127/61, pulse is 67, respiratory rate is 16, oxygen sat is 28% on room air. The patient had a blood sugar of 131. GENERAL: She is awake, somewhat sleepy. LUNGS: Clear. HEART: S1 and S2, rhythm. ABDOMEN: Soft with positive bowel sounds. EXTREMITIES: Show no evidence of edema. LABORATORY DATA: Shows WBC of 5.9, RBC of 4.23, hemoglobin of 10.8, hematocrit of 35.6, and platelet count is 144. Chemistry show sodium of 141, potassium 4.5, chloride 109, BUN of 30, creatinine of 1.2, calcium is 11.7. ASSESSMENT AND PLAN: I have discussed with the staff a suggestion to review medications with Psychiatry, and the patient states that she feels that they may be making a little too sleepy. She has been placed on lithium, and Renal is following the patient as well as Endocrinology. Her diuretics have been held because of the underlying renal insufficiency and the use of the lithium, and this is being reviewed by Psychiatry and Renal. Hypothyroid disease is recommended to be just monitored and she is on insulin regimen as per Endocrinology. She has sleep apnea history and pulmonary hypertension as well. Continue current level of care. Suyapa Benjamin MD
[2017-10-04] MEDS: MELATONIN 3 MG PO SCH (20:37)
--- NOTE | 2017-10-05 01:25 | PN ---
DATE: The patient is a 57-year-old white female who has a mood disorder, probably due to organic factors, perhaps with an underlying bipolar disorder as well, and with borderline mental intelligence. She has been upset over a number of family issues including difficulty dealing with her 12-year-old son, and the perception of lack of support and criticism by her , and of the demands of daily domestic living, all of which have overwhelmed her. Superimposed on this is a number of medical problems including diabetes mellitus, prerenal azotemia, pulmonary hypertension which have limited to the range of pharmacologic options available to treat this treatment resistant patient. The patient has traditionally responded well to low-dose lithium, but its utility is limited presently by her renal function. Endocrinology has lowered her premixed insulin regimen with Humulin 70/30, to keep it as 30 units before breakfast and 20 units before dinner. Low-dose Humulin insulin will be maintained before meals and at bedtime. Dr. Benjamin/Internal Medicine consultation reviewed. Behaviorally, the patient appears to be alert, oriented to three spheres, seems to be calming down that she is less loud and less anxious, and more cooperative and compliant. This occurs when the patient was restarted on lithium. CBC and differential today showed hemoglobin 10.8, hematocrit 35.6. A biochemical profile today showed blood glucose ranging from 123 to 131 with elevated calcium of 11.7 but with BUN elevated at 30 and creatinine holding at 1.2. Blood pressure 123/52, pulse 66, temperature 98.6, respiratory rate 16. It is felt that if the patient can sustain her progress behaviorally, and stabilization medically, then she will be ready for discharge by the end of this week. Toni Joseph MD/ PhD
[2017-10-05 07:02] VITALS: RESP 20
[2017-10-05] MEDS: Insulin Lispro (humaLOG) LOW Coverage SC SCH ×4 (07:59→23:35)
[2017-10-05] MEDS: Docusate-Senna 50 mg-8.6 mg Tab PO SCH ×2 (09:11→09:49)
[2017-10-05] MEDS: Pantoprazole 40 mg EC Tab PO SCH (09:12)
[2017-10-05] MEDS: Magnesium Oxide 400 mg Tab UD PO SCH (09:12)
[2017-10-05] MEDS: ADEMPAS 1.5 MG PO SCH ×3 (09:13→17:48)
[2017-10-05] MEDS: Insulin Human NPH/Reg 70/30 Vial(3 ml) SC SCH ×2 (09:15→17:46)
[2017-10-05] MEDS: Lithium Carbonate Oral Sol 8 MEQ/5 ML PO SCH ×2 (09:18→17:49)
--- NOTE | 2017-10-05 13:38 | PN ---
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 The patient seems to have undergone a significant favorable reversal of the course of her illness since initiation of low-dose lithium, which is being monitored given her renal condition. She is less pressured in speech, less loud in speech and more willing to listen to other people's perspective and just listen to them and to reflect on her actions and how they might impact on others. She has drawn up a list. She also showed me her art work. I have reviewed her situation with Dr. Benjamin with regard to getting a CPAP machine upon her discharge and also have discussed with social work different placement venues for individual and family therapy upon her discharge. Blood sugar today is 121. Blood pressure 129/62, pulse 67, temperature 97.9, respiratory rate 20. [place] level on 10/02 was 0.3. We will repeat lithium level. If the patient is able to maintain a good progress, she will be considered ready for discharge tomorrow. Toni Joseph MD/ PhD
--- NOTE | 2017-10-05 14:18 | PN ---
DATE: 10/05/2017 SUBJECTIVE: The patient is seen eating lunch. She is awake. She is alert. She is comfortable. She denies any pain. She denies any shortness of breath. PHYSICAL EXAMINATION: GENERAL: Obese middle-aged lady. VITAL SIGNS: Blood pressure 129/62, heart rate 67, respiratory rate 20, temperature 97.9. HEENT: Normocephalic, atraumatic. NECK: Supple, no JVD. LUNGS: Bilateral equal entry, rales. CARDIAC: S1 and S2, regular rate and rhythm, positive murmur, no rub. ABDOMEN: Obese, distended, soft, nontender, bowel sounds present. EXTREMITIES: No lower extremity edema. LABORATORY DATA: No new labs today. Calcium was 11.7 yesterday, phosphorus 3.9, magnesium 1.9. CURRENT MEDICATIONS: Geodon, insulin, Klonopin, lithium, Lyrica, Maalox, mag oxide, gabapentin, Neurontin, Protonix, Thorazine, Tylenol. ASSESSMENT: 1. Acute kidney injury, mild prerenal azotemia. 2. Schizophrenia. 3. Uif-vlehrkv-gtbkodvyl diabetes mellitus. 4. History of pulmonary hypertension. PLAN: 1. Continue lithium as per psychiatry advise. 2. Continue to hold Lasix and Zaroxolyn. 3. 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 Kandis Jones MD
--- NOTE | 2017-10-05 20:11 | PN ---
DATE: ENDOCRINOLOGY FOLLOWUP NOTE LOCATION: Room 513. SUBJECTIVE: This is a 57-year-old female with recent uncontrolled type 2 insulin-requiring diabetes, now being followed closely in the psychiatric unit, and also followed for metabolic management. Her glycemic levels are much improved at this time and the glucose levels have ranged from 110 to 121 and 131 mg/dL. ASSESSMENT AND PLAN: So at this time, we would recommend the same premixed insulin regimen in case she is discharged as noted. We will continue the Humulin 70/30 given as 30 units a.c. breakfast and 20 units a.c. dinner as ordered. She will follow with her medical doctor for outpatient diabetic management. Swetha Lowe MD
[2017-10-05] MEDS: MELATONIN 3 MG PO SCH (21:06)
--- NOTE | 2017-10-06 00:18 | PN ---
DATE: SUBJECTIVE: A 57-year-old female on the Psychiatry unit, being followed by Dr. Toni Joseph. Nursing staff relates there were no particular problems with the patient. Patient states that she had a good night. OBJECTIVE: VITAL SIGNS: Her temperature is 97.9, blood pressure is 129/62, respiratory rate is 20, pulse is 67. LUNGS: Clear. HEART: S1 and S2 rhythm. ABDOMEN: Soft with positive bowel sounds. EXTREMITIES: Show no evidence of edema. LABORATORY DATA: Random blood sugar this morning was 121 and 110. MEDICATIONS: She is currently on Geodon 60 mg b.i.d., melatonin t.i.d., Adempas for pulmonary hypertension, sliding insulin scale for coverage, Klonopin 1 mg q.i.d., lithium 4 mEq b.i.d., Lyrica 50 mg t.i.d., Maalox p.r.n., milk of magnesia p.r.n., Neurontin 300 mg b.i.d., Protonix 40 mg daily, Senokot daily, Thorazine b.i.d., Tylenol p.r.n. Her Zaroxolyn and Lasix are currently on hold as per Renal, given her history of need for lithium. ASSESSMENT AND PLAN: She has sleep apnea, pulmonary hypertension, hyperparathyroidism, insulin-dependent diabetes. She uses a CPAP unit at night and attempts will be made to procure one for the patient prior to discharge or to assist the patient in getting one when she is at home. Discussion has been held regarding the interaction of lithium and risk of elevated sugars and lithium toxicity using diuretics. We must wait to see what her dinking machine operator, ferry pilot, and primary care doctor recommend. Continue current level of care. Suyapa Benjamin MD
[2017-10-06 07:09] VITALS: BP 141/79; PULSE 64; TEMP 97.7
[2017-10-06] MEDS: Insulin Lispro (humaLOG) LOW Coverage SC SCH (08:13)
[2017-10-06] MEDS: ADEMPAS 1.5 MG PO SCH (08:30)
[2017-10-06] MEDS: Magnesium Oxide 400 mg Tab UD PO SCH (08:31)
[2017-10-06] MEDS: Pantoprazole 40 mg EC Tab PO SCH (08:31)
[2017-10-06] MEDS: Docusate-Senna 50 mg-8.6 mg Tab PO SCH (08:32)
[2017-10-06] MEDS: Insulin Human NPH/Reg 70/30 Vial(3 ml) SC SCH (08:46)
[2017-10-06] MEDS: Lithium Carbonate Oral Sol 8 MEQ/5 ML PO SCH (10:31)
--- NOTE | 2017-10-06 14:04 | PN ---
DATE: ENDOCRINOLOGY FOLLOWUP NOTE LOCATION: Room 513, Psychiatry. SUBJECTIVE: This is a 57-year-old female with recent uncontrolled type 2 insulin-requiring diabetes, now being followed closely for metabolic management. Her glycemic levels are fluctuating, but much improved at this time and the latest glucose levels have ranged from 121 to 159 and 248 mg/dL. PLAN: So at this time, we will continue the same premixed insulin regimen given as Humulin 70/30 at 30 units a.c. breakfast and 20 units a.c. dinner as ordered. We will obtain serial chemistries and supplement accordingly as needed. We will follow. Swetha Lowe MD
== END 2017-10-06 12:07 | disposition home or self-care (01) | DRG 430 ==
LOC: ED 03:23 → UNDOADMIN 10:14 → ERH 10:14 → PSYC 14:24
PROVIDERS: ADMIT Psychiatry & Neurology Addiction Medicine; ATTEND Psychiatry & Neurology Addiction Medicine
PROC: GZ3ZZZZ Medication Management (ICD-10-PCS; principal; 2017-09-19)
PROC: 5A09457 Assistance with Respiratory Ventilation, 24-96 Consecutive Hours, Continuous Positive Airway Pressure (ICD-10-PCS; 2017-09-23)
DX: F31.9 Bipolar disorder, unspecified (principal); N17.9 Acute kidney failure, unspecified; E87.3 Alkalosis; E11.22 Type 2 diabetes mellitus with diabetic chronic kidney disease; E11.319 Type 2 diabetes mellitus with unspecified diabetic retinopathy without macular edema; I27.20 Pulmonary hypertension, unspecified; Z68.41 Body mass index [BMI] 40.0-44.9, adult; E87.6 Hypokalemia; R09.02 Hypoxemia; N18.2 Chronic kidney disease, stage 2 (mild); E86.0 Dehydration; E87.0 Hyperosmolality and hypernatremia; E11.42 Type 2 diabetes mellitus with diabetic polyneuropathy; F20.9 Schizophrenia, unspecified; F07.9 Unspecified personality and behavioral disorder due to known physiological condition; G47.33 Obstructive sleep apnea (adult) (pediatric); F41.1 Generalized anxiety disorder; I25.10 Atherosclerotic heart disease of native coronary artery without angina pectoris; Z79.4 Long term (current) use of insulin; E66.9 Obesity, unspecified; E21.0 Primary hyperparathyroidism; E78.5 Hyperlipidemia, unspecified; D64.9 Anemia, unspecified; G47.00 Insomnia, unspecified; K59.00 Constipation, unspecified; Z63.8 Other specified problems related to primary support group